=== PATIENT | female | born 1995 | race Caucasian/White ===

== ENCOUNTER 2019-07-02 20:16 | Outpatient (CLI) | payer MEDICAID, SELFPAY ==
[2019-07-02] VITALS (8 sets, daily range): BP systolic 139–140; BP diastolic 69–74; PULSE 96–105; RESP 17–18; TEMP 36.7–36.8; O2SAT 93–95; BMI 56.7
== END 2019-07-02 21:10 | disposition home or self-care (01) ==
LOC: OPOB 20:18 → OBGYN 20:19
PROVIDERS: Family Provider Registered Nurse; PCP Registered Nurse; Visit Provider Obstetrics & Gynecology
DX: O26.899 Other specified pregnancy related conditions, unspecified trimester (principal); Z3A.00 Weeks of gestation of pregnancy not specified; N89.8 Other specified noninflammatory disorders of vagina
CPT/HCPCS: 59025; 99211

== ENCOUNTER 2019-09-14 14:22 | Inpatient (IN) | payer MEDICAID, SELFPAY ==
[2019-09-14] VITALS (76 sets, daily range): BP systolic 0–214; BP diastolic 0–128; PULSE 74–104; RESP 18–32; TEMP 36.4–36.9; O2SAT 85–97; BMI 62.3
[2019-09-14 15:52] LABS: Glucose Point of Care 81 mg/dL (70-110)
[2019-09-14] MEDS: dextrose 5%-lactated ringers 1,000 ML 999 ML IV (15:57)
[2019-09-14] MEDS: labetalol 5 mg/mL SDV 20mL IVP ×2 (15:57→16:30)
[2019-09-14 16:25] LABS: Amphetamines Screen Urine Negative (Negative); Barbiturates Screen Urine Negative (Negative); Benzodiazepines Screen Urine Negative (Negative); Cocaine Screen Urine Negative (Negative); Opiate Screen Urine Negative (Negative); PCP Screen Urine Negative (Negative); THC Screen Urine Negative (Negative)
[2019-09-14 16:34] LABS: Bilirubin Urine Neg (NEGATIVE); Blood Urine Neg (Negative); Glucose Urine UA Norm (Normal); Ketones Urine Negative (Negative); Leukocyte Esterase Urine 2+ (Negative); Nitrate Urine Negative (Negative); Protein Urine 3+ (Negative); Urine Color Yellow (Yellow); Urobilinogen Urine 1 mg/dL (Negative); pH Urine 6 (5-7)
[2019-09-14 16:35] LABS: Add Urine Culture? No; Bacteria Urine 2+; RBC Urine 0-4 /hpf (0-2); Squamous Epithelial Cell Urine 25-40 (0-5)
--- NOTE | 2019-09-14 16:35 | P.HP_ITS ---
Providers/Chief Complaint Admitting Physician: Calvin Bernard MD Primary Care Provider: MYKE Castro History of Present Illness Soraida Dong is a 24 year old at 36.2 weeks gestation by LMP consiste nt with second trimester ultrasound. Her is complicated by prior low- transverse section, history of preeclampsia, morbid obesity, anxiety on Vistaril, chronic hypertension without treatment, now with hypertension with severe features -cannot rule out preeclampsia. The patient has been seen nurse practitioner Lisette Temple at the [facility] since approximately 13 weeks gestation. The patient states that she did not miss appointments. The patient was scheduled to deliver by repeat at [facility] in [place] in early September. The patient was not sure that she could get there because they are having car troubles. The patient has not been monitoring her blood pressure at home. The patient began having nausea, headaches and blurred vision yesterday. The patient noted that she lost half of her vision on the left eye laterally for a period of time as it was very blurry. It has improved, but still is blurry. The patient has also been having some chest pains over the last couple of weeks. She has had some shortness of breath that she feels is secondary to bad lungs since she was a child. She denies any fevers, cough, vomiting, diarrhea, constipation, dysuria, leakage of fluid. She did have some vaginal bleeding with minimal spotting about a month ago that has resolved. Medications/Allergies Home Medications Medication Instructions Recorded Confirmed Last Taken Type 1 tab PO DAILY 07/02/19 07/02/19 07/01/19 History melatonin 1 cap PO BEDTIME 07/02/19 07/02/19 07/01/19 History Allergies Allergy/AdvReac Type Severity Reaction Status Date / Time citalopram Allergy palpitation Verified 04/02/19 13:09 s quetiapine [From Seroquel] Allergy palpitation Verified 04/02/19 13:09 s PFSH Acute PFSH: Surgical History (Updated 09/14/19 @ 16:46 by Calvin Bernard MD) History of section Social History (Updated 04/02/19 @ 13:11 by Mell Darling LPN) Smoking and tobacco status: never smoked Vitals/I&O/Wt Last Vital Signs Pulse 86 09/14/19 16:29 BP 214/112 09/14/19 16:29 Weight last 48 hrs Weight 398 lb Physical Exam Narrative: EXAM NARRATIVE: General: Alert and oriented x3 Eyes: Pupils equal round and reactive to light and accommodation Mouth: Mucous membranes moist, pharynx non-erythematous Cardiac: Tachycardic rate and regular rhythm without murmurs Lungs: Clear to auscultation bilaterally without wheezes, crackles or rhonchi Abdomen: Soft, non-tender, fundus consistent with gestational age Extremities: Trace edema in the bilateral lower extremities A&P Additional A&P Information Soraida Dong is a 24 year old at 36.2 weeks gestation by LMP consistent with second trimester ultrasound. Her is complicated by prior low-transverse section, history of preeclampsia, morbid obesity, anxiety on Vistaril, chronic hypertension without treatment, now with hyper tension with severe features -cannot rule out preeclampsia. The patient is having blood pressures as high as 212 systolic that is concerning for likely chronic hypertension with severe features. The patient is having symptoms of nausea, headache and visual disturbances. These are certainly significant and concerning for his severe disease as well. The patient has received 2 doses of labetalol and her blood pressures are not responding well. I spoke with the patient about the risks of proceeding with and the risk for stroke, organ failure and for herself or her as well as the potential complications of delivery at 36 weeks for the . I recommended that we proceed with a repeat section today because of the above. The patient is in agreement with the plan of care. We are working on getting records from her nurse practitioner. Labs are currently pending for a preeclamptic work-up. At this point I do not feel comfortable waiting for a 12- hour urine protein to confirm preeclampsia. I do not think that it would change anything at this point anyway. We will start the patient on IV magnesium 4 g bolus and 2 g/h now and get her set up for a section. All questions were answered. Proceed with repeat section. Attestations Medical Necessity Statement*: The patient will be here for greater than 2 midnights due to treatment of the above issues. 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
[2019-09-14 16:44] LABS: Basophils % 0.3 %; Eosinophils # 0.1 10^3/uL (0.0-0.8); Hematocrit 35.9 % (37.0-47.0); Hemoglobin 11.3 g/dL (11.5-15.3); Lymphocytes # 1.8 10^3/uL (0.8-4.8); Lymphocytes % 16.7 %; Mean Corpuscular HGB Conc 31.5 g/dL (30.0-36.0); Mean Corpuscular Hemoglobin 27.8 pg (28.0-34.0); Mean Corpuscular Volume 88.4 fL (81-99); Mean Platelet Volume 11.1 fL (7.4-10.4); Monocytes # 0.6 10^3/uL (0.2-0.9); Monocytes % 5.8 %; Neutrophils # 8.29 10^3/uL (1.8-7.7); Neutrophils % 75.7 %; Nucleated Red Blood Cells % 0 %; Platelet Count 183 10^3/cmm (130-400); Red Blood Count 4.06 10^6/uL (4.1-5.3); Red Cell Distribution Width 14.2 % (12.1-15.1); White Blood Count 10.9 10^3/uL (4.0-10.0)
[2019-09-14 16:53] LABS: Alanine Aminotransferase 14 U/L (0-33); Albumin Level 2.9 g/dL (3.5-5.2); Alkaline Phosphatase 109 IU/L (35-105); Anion Gap 12.9 (5-19); Aspartate Amino Transferase 19 U/L (0-32); Blood Urea Nitrogen 5 mg/dL (6-20); Calcium 8.9 mg/dL (8.5-10.5); Carbon Dioxide 28 mmol/L (22-29); Chloride 101 mmol/L (98-107); Globulin 3.6 g/dL (1.3-4.6); Glomerular Filtration Rate 273.3 mL/min (90-130); Glucose 82 mg/dL (65-115); Osmolality Calculated 281 mOsm/kg (285-295); Potassium 3.9 mmol/L (3.5-5.1); Sodium 138 mmol/L (136-145); Total Bilirubin 0.2 mg/dL (0.15-1.2); Total Protein 6.5 g/dL (6.6-8.7)
[2019-09-14] MEDS: magnesium sulfate premix 4 GM/100 ML PREMIX IV (17:04)
[2019-09-14] MEDS: lactated ringers 1,000 ML 999 ML IV (17:04)
[2019-09-14] MEDS: famotidine 20 mg/2 mL INJ IVP (17:06)
[2019-09-14] MEDS: metoclopramide 5 mg/mL SDV 2 mL 10 MG IV (17:07)
[2019-09-14] MEDS: ceFAZolin 1,000 MG in sodium chloride 0.9% (plus) 50 ML 100 MG IV (17:07)
[2019-09-14 17:16] LABS: Urine Creatinine 181 mg/dL (28-217)
[2019-09-14] MEDS: citric acid-sodium citrate 30 mL UDC PO (17:18)
[2019-09-14 17:27] LABS: UPRO/UCREAT Ratio 3.08 mg/mg CR; Urine Protein Random 558 mg/dL
--- NOTE | 2019-09-14 17:36 | ANES.PREANE2 ---
Pre-Anesthetic Assessment Pre-Anesthetic Assessment: Height/Weight: Height 1.7 m Weight 180.53 kg Pulse BP 84 199/106 09/14/19 16:49 09/14/19 16:49 Preop Diagnosis: prev c section Proposed Procedure: c section Was Beta Leoncio taken within 24 hours: N/A Last intake: 1000 09/13 Social: Social History: No alcohol and No tobacco Exam: Pre-Anes Outpt Exam: alert, oriented x 3, clear to auscultation bilaterally and regular rate & rhythm Airway: Submandibular: WNL Cervical ROM: WNL MP: 3 Dentition: Full History/ROS: No significant history except as noted and No significant complaints Pulmonary: Pulmonary: None reported CV/HEM: CV/HEM: HTN (pre-eclampsia) and None reported : : None reported Hepatic: Hepatic: None reported GI: GI: GERD Metabolic: Metabolic: None reported Musc/skel: Musc/skel: None reported Neuropsych: Neuropsych: None reported Anesthetic Plan: ASA status: 3 Anesthesia: General and Regional (specify below) (SAB) Meds/Allergies Current Medications: Current Medications Generic Name Dose Route Start Last Admin Trade Name Freq PRN Reason Stop Dose Admin Dextrose/Lactated Ringer's 1,000 mls @ 125 m ls/hr 09/14/19 15:30 09/14/19 15:57 Dextrose 5%-Lact ated Ringers IV 999 mls/hr .Q8H RACHEL Administration Lactated Ringer's 1,000 mls @ 999 m ls/hr 09/14/19 16:36 09/14/19 17:04 Lactated Ringers IV 999 mls/hr .Q1H1M PRN Administration Per L&D Rescitati on Protocol [facility] Anesthesia PFSH: Surgical History (Updated 09/14/19 @ 16:46 by Calvin Bernard MD) History of section Social History (Updated 04/02/19 @ 13:11 by Mell Darling LPN) Smoking and tobacco status: never smoked Female Reproductive History: : 2 Data Anesthesia CBC & Chem 7: 09/14/19 15:40 09/14/19 14:30 Other Labs: Laboratory Results - last 48 hr 09/14/19 09/14/19 09/14/19 14:30 14:30 14:30 WBC RBC Hgb Hct MCV MCH MCHC RDW Plt Count MPV Neut % (Auto) Lymph % (Auto) [place] % (Auto) Eos % (Auto) Baso % (Auto) Neut # (Auto) Lymph # (Auto) [place] # (Auto) Eos # (Auto) Baso # (Auto) Nucleated RBC % (auto) Nucleated RBCs # Sodium Potassium Chloride Carbon Dioxide Anion Gap BUN Creatinine GFR Calculation Glucose POC Glucose Calculated Osmolality Uric Acid Calcium Total Bilirubin AST ALT Alkaline Phosphatase Total Protein Albumin Globulin Urine Color Yellow Urine Appearance Sl cloudy A Urine pH 6 Ur Specific [place] 1.020 Urine Protein 3+ H Urine Glucose (UA) Norm Urine Ketones Negative Urine Blood Neg Urine Nitrate Negative Urine Bilirubin Neg Urine Urobilinogen 1 H Ur Leukocyte Esterase 2+ H Urine RBC 0-4 H Urine WBC 10-15 H Ur Squamous Epith Cells 25-40 H Urine Bacteria 2+ H U Random Total Protein 558 Urine Creatinine 181 Protein/Creatinin Ratio 3.08 Urine Opiates Screen Negative Ur Barbiturates Screen Negative Ur Phencyclidine Scrn Negative Ur Amphetamines Screen Negative U Benzodiazepines Scrn Negative Urine Cocaine Screen Negative U Marijuana (THC) Screen Negative 09/14/19 09/14/19 09/14/19 14:30 15:40 15:43 WBC 10.9 H RBC 4.06 L Hgb 11.3 L Hct 35.9 L MCV 88.4 MCH 27.8 L MCHC 31.5 RDW 14.2 Plt Count 183 MPV 11.1 H Neut % (Auto) 75.7 Lymph % (Auto) 16.7 [place] % (Auto) 5.8 Eos % (Auto) 1.0 Baso % (Auto) 0.3 Neut # (Auto) 8.29 H Lymph # (Auto) 1.8 [place] # (Auto) 0.6 Eos # (Auto) 0.1 Baso # (Auto) 0.0 Nucleated RBC % (auto) 0 Nucleated RBCs # 0.0 Sodium 138 Potassium 3.9 Chloride 101 Carbon Dioxide 28 Anion Gap 12.9 BUN 5 L Creatinine 0.3 L GFR Calculation 273.3 H Glucose 82 POC Glucose 81 Calculated Osmolality 281 L Uric Acid 5.0 Calcium 8.9 Total Bilirubin 0.2 AST 19 ALT 14 Alkaline Phosphatase 109 H Total Protein 6.5 L Albumin 2.9 L Globulin 3.6 Urine Color Urine Appearance Urine pH Ur Specific [place] Urine Protein Urine Glucose (UA) Urine Ketones Urine Blood Urine Nitrate Urine Bilirubin Urine Urobilinogen Ur Leukocyte Esterase Urine RBC Urine WBC Ur Squamous Epith Cells Urine Bacteria U Random Total Protein Urine Creatinine Protein/Creatinin Ratio Urine Opiates Screen Ur Barbiturates Screen Ur Phencyclidine Scrn Ur Amphetamines Screen U Benzodiazepines Scrn Urine Cocaine Screen U Marijuana (THC) Screen Cardiac Studies: No Data to Display
--- NOTE | 2019-09-14 20:18 | P.OP_ITS ---
Operative Report Date of procedure: September 14, 2019 Pre-op Diagnosis: prev c section Pre-op Diagnosis: 1. Intrauterine at 36.2 weeks gestation 2. Prior low-transverse section 3. Preeclampsia with severe features 4. Morbid obesity 5. Anxiety Post-op Diagnosis: 1. Intrauterine status post repeat low transverse section at 36.2 weeks gestation 2. Prior low-transverse section 3. Preeclampsia with severe features 4. Morbid obesity 5. Anxiety 6. Breech presentation 7. Delivery of healthy infant male weighing 5 pounds 7 ounces Procedure Done: Repeat low transverse section Specimens removed/disposition: Placenta discarded Pathology: none sent Surgeon: Calvin Bernard Anesthesia: Other (Spinal) Estimated blood loss (mL): 600 Urine output (mL): 300 Complications: None Condition: stable Disposition: floor Brief History: Soraida Dong is a 24 year old G2 now P2 status post repeat low transverse section at 36.2 weeks gestation by LMP consistent with second trimester ultrasound. Her was complicated by prior low- transverse section, history of preeclampsia, morbid obesity, anxiety on Vistaril, chronic hypertension without treatment, now with hypertension with severe features -cannot rule out preeclampsia. The patient has been seeing nurse practitioner Lisette Temple at the [facility] since approximately 13 weeks gestation. The patient s tates that she did not miss appointments. The patient was scheduled to deliver by repeat at [facility] in [place] in early September. The patient was not sure that she could get there because they are having car troubles. The patient has not been monitoring her blood pressure at home. Her blood pressures were apparently good in the 120/82 and 128/82 range. Blood pressure at the last appointment was 144/76 approximately 2 weeks ago. The patient began having nausea, headaches and blurred vision yesterday. The patient noted that she lost half of her vision on the left eye laterally for a period of time as it was very blurry. It has improved, but still is blurry. The patient has also been having some chest pains over the last couple of weeks. She has had some shortness of breath that she feels is secondary to bad lungs since she was a child. She denies any fevers, cough, vomiting, diarrhea, constipation, dysuria, leakage of fluid. She did have some vaginal bleeding with minimal spotting about a month ago that has resolved. Upon presentation to labor and delivery triage the patient's blood pressures got up as high as 212 systolic. She continued to be symptomatic and even after 2 doses of IV labetalol her blood pressures were still in the 160s and 170s systolic. Her urine protein creatinine ratio came back at 3.08 consistent with very high protein in the urine and suspicion for significantly elevated 24-hour urine protein. Because of the significant risks to the patient and her infant it was decided best to proceed with delivery. The patient was started on IV magnesium prior to delivery. Procedure: After informed consent was obtained, the patient was taken to the operating room and the patient was prepped and draped in a normal sterile fashion in the dorsal supine position. A spinal epidural was placed and adequate anesthesia was confirmed. At 182 on 09/14/2019, a Pfannenstiel skin incision was made and carried through to the underlying layer of fascia using a scalpel. The fascial incision was then extended laterally using curved Mayos. The fascia was then grasped with Flower clamps and the underlying rectus muscles were dissected off taking care to avoid injury to the underlying tissues. The peritoneum was entered bluntly with one digit. It was then bluntly. An Suyapa device was used for better visualization of the uterus. The bladder blade was placed and the vesicouterine peritoneum was well below the lower uterine segment of the uterus. Only mild scar tissue was appreciated. The uterine incision was made in the lower uterine segment in a transverse fashion with the scalpel at 18:32. The amniotic membrane was entered bluntly and a moderate amount of clear fluid was noted. The was in the breech position. One leg was delivered at a time followed by delivery of the left arm with an inward and downward sweeping of the arm. The right arm was delivered us ing a similar motion. The head delivered without significant difficulty at 183 on 09/14/2019. There was no nuchal cord. The mouth and nose were suctioned. The was crying immediately upon delivery. The cord was clamped and cut and the was handed to the awaiting pediatric nurses and Dr. Casey. The placenta was then manually expressed. The uterus was then exteriorized from the abdomen and a wet lap was used to clear the uterus of clots and debris. The bladder blade was reinserted and the uterine incision was closed using 0 Vicryl in a running locking fashion. A second layer of 0 chromic was used in the same manner. A third layer of 0 chromic was used. Excellent hemostasis was obtained. Next the posterior cul-de-sac was inspected and was cleared of any blood. The uterus was then placed back into the abdomen. The gutters were cleared of any further clots and debris and the uterine incision was again inspected and hemostasis was noted. The subfascial tissue was inspected for hemostasis and the peritoneum was re-approximated using 2-0 plain in a running fashion. Subfascial tissue was again inspected and hemostasis was obtained. The fascia was then reapproximated using 0 Vicryl in a running fashion. Subcutaneous tissue was inspected for hemostasis. Cameron's fascia was then re-approximated using 2-0 plain in a running fashion. A second layer was used to reapproximate the fatty layer. Good hemostasis was noted. The subcutaneous tissue was then reapproximated using a subcuticular stitch. The patient tolerated the procedure well and was recovered in stable condition. Estimated blood loss was 600 mL. Urine in the Henderson catheter was clear. The patient was taken recovery in good condition.
--- NOTE | 2019-09-14 21:21 | XRR_ITS ---
PROCEDURE INFORMATION: Exam: XR Chest, 1 View Exam date and time: 09/14/2019 9:54 PM Age: 24 years old Clinical indication: Dyspnea; Prior surgery; Surgery date: Post-operative (0-2 days); Surgery type: Post c section tomight; Additional info: Low spo2 TECHNIQUE: Imaging protocol: XR of the chest Views: 1 view. COMPARISON: CR Chest 1 [place] [id number] 01/28/2019 3:47 AM FINDINGS: Lungs: Moderate mixed interstitial/alveolar opacities throughout both lungs, increased from prior study. This likely represents pulmonary edema (atypical/viral pneumonia is conceivable). Pleural space: No visible pneumothorax or pleural effusion. Heart/Mediastinum: Mild cardiomegaly, new. Bones/joints: No emergent findings identified. XR/XR chest 1V portable [id number] IMPRESSION: 1. Moderate mixed interstitial/alveolar opacities throughout both lungs, increased from prior study. This likely represents pulmonary edema (atypical/viral pneumonia is conceivable). 2. Mild cardiomegaly, new.
--- NOTE | 2019-09-14 21:24 | ECG_ITS ---
[facility] Test Date: 2019-09-14 Pat Name: Soraida Dong Department: Room: 208 Gender: Female Policy Writer: : 1995 Requested By: Calvin Haider Order Number: [id number] [place] MD: Leila Mccall M.D. Measurements Intervals [place] Rate: 92 P: 71 PA: 143 QRS: 61 QRSD: 92 T: 44 QT: 368 QTc: 456 Interpretive Statements SINUS RHYTHM POSSIBLE LEFT ATRIAL ENLARGEMENT [-0.1mV P WAVE IN V1/V2] Compared to ECG 01/28/2019 09:33:32 Sinus tachycardia no longer present Electronically Signed On 09-15-2019 1:23:25 CDT by Leila Mccall M.D. [email or web address]
[2019-09-14 21:55] LABS: D Dimer 2.43 ug/mIFEU (0-0.59)
[2019-09-14 21:59] LABS: Troponin T (5th) Once 7 ng/L (0-10)
[2019-09-14] MEDS: morphine 4 mg/mL SDV 1 mL IVP (23:10)
[2019-09-14] MEDS: ondansetron 2 mg/ML SDV 2 mL 4 MG IVP (23:22)
[2019-09-15] VITALS (365 sets, daily range): BP systolic 0–168; BP diastolic 0–111; PULSE 66–121; RESP 16–32; TEMP 36.9–37.1; O2SAT 63–99
[2019-09-15 00:13] LABS: Troponin T (5th) Once 8 ng/L (0-10)
[2019-09-15 00:24] LABS: Magnesium Level (OB Only) 3.4 mg/dL (5.0-7.5)
[2019-09-15] MEDS: clindamycin 900 MG/50 ML PREMIX 100 MG IV ×3 (01:05→16:33)
[2019-09-15] MEDS: promethazine 25 mg Tablet PO ×2 (01:05→08:05)
[2019-09-15] MEDS: magnesium sulfate premix 20 GM/500 ML BAG IV ×2 (02:41→14:08)
--- NOTE | 2019-09-15 06:01 | CTR_ITS ---
PROCEDURE INFORMATION: Exam: CT Angiography Chest With Contrast Exam date and time: 09/15/2019 6:16 AM Age: 24 years old Clinical indication: Shortness of breath; Patient HX: Onset of hypoxia. Best exam obtained due to body habitus. Additional info: Low spo2 TECHNIQUE: Imaging protocol: Computed tomographic angiography of the chest with intravenous contrast. 3D rendering: MIP and/or 3D reconstructed images were created by the technologist. Radiation optimization: All CT scans at this facility use at least one of these dose optimization techniques: automated exposure control; mA and/or kV adjustment per patient size (includes targeted exams where dose is matched to clinical indication); or iterative reconstruction. Contrast material: OMNI 350; Contrast volume: 180 ml; Contrast route: INTRAVENOUS (IV); COMPARISON: CTA Chest-Pulmonary Emb [id number] 01/28/2019 4:49 AM RADIATION DOSE METRICS: Total DLP (mGy-cm): 1370.64 FINDINGS: Pulmonary arteries: No pulmonary emboli identified. Aorta: No thoracic aortic aneurysm identified. Lungs: Mild patchy atelectasis scattered throughout both lungs. Pleural space: No pneumothorax or pleural effusion. Heart: Heart size within normal limits. Lymph nodes: Unremarkable. No enlarged lymph nodes. Bones/joints: Visualized bones are unremarkable. Soft tissues: Unremarkable. Other findings: Images of the upper abdomen were reviewed and are unremarkable. CT/CT angio chest PE protcl [id number] IMPRESSION: 1. No pulmonary emboli identified. Radiation Dose CTDIVOL = (mGy): DLP = 1370.64 (mGy-cm)
[2019-09-15] MEDS: iohexol 350 mg/mL 100 mL Btl IV ×2 (06:52→06:54)
[2019-09-15] MEDS: prenatal vitamin Capsule 1 CAP PO (07:59)
[2019-09-15] MEDS: oxyCODONE-APAP 5-325 mg Tablet PO (07:59)
[2019-09-15] MEDS: ferrous sulfate EC 325 mg Tablet PO (07:59)
--- NOTE | 2019-09-15 09:00 | PC.NURSE ---
CPAP Oxygen increased from 2L to 4L for a goal to maintain O2 levels 92% and above
[2019-09-15] MEDS: docusate sodium 100 mg Capsule PO ×2 (09:52→18:19)
[2019-09-15 10:08] LABS: Magnesium Level (OB Only) 3.9 mg/dL (5.0-7.5)
--- NOTE | 2019-09-15 10:41 | ANE.PACU2 ---
Inpatient post-anesthesia follow up: Airway intact: Yes Vital signs: Temperature 98.4 F Pulse Rate 84 Respiratory Rate 17 Blood Pressure 131/66 Pulse Oximetry 96 Oxygen Delivery Me thod Nasal Cannula Oxygen Flow Rate 6 Fraction of Inspir ed Oxygen Hydration adequate: Yes Nausea and vomiting: No Pain level: 3 Mental status: Baseline
--- NOTE | 2019-09-15 13:09 | USCV_ITS ---
Soraida Dong Age: 24 Gender: F : 1995 Exam Date: 09/15/2019 15:10 Ordering Phys: Calvin Bernard MD Technologist: Alejandra Eubanks [place] [facility] [place]: SEVERE PREECAMPSIA BP: / HR: Rhythm: Sinus Technical Quality: TDS MEASUREMENTS (Male / Female) Normal Values 2D ECHO LVOT Diameter 2.0 cm LA Diameter 2.6 cm Aorta at Sinotubular Diameter 2.9 cm FINDINGS Left Ventricle Right Ventricle Right Atrium Left Atrium Mitral Valve Aortic Valve Tricuspid Valve Pulmonic Valve Pericardium Aorta CONCLUSIONS Please note that this is technically difficult and limited echo due to suboptimal image quality 1-Left ventricle and right ventricle cavities are not well visualized probably normal. Probably left ventricle function is normal intermittent 50 to 55% however cannot assess accurately 2-Valvular function cannot be assessed due to insufficient hemodynamic data secondary to suboptimal images 3-Advise repeating echocardiogram with contrast 4-No prior exam to compare. Lauren Perea MD (Electronically Signed) Final Date: 15 September 2019 16:04 S
[2019-09-15] MEDS: HYDROcodone-acetaminophen 5-325 mg Tablet PO ×2 (14:07→18:19)
[2019-09-15] MEDS: FUROsemide 10 mg/mL SDV 10mL 60 MG IVP ×2 (14:07→21:06)
--- NOTE | 2019-09-15 14:21 | PM.PN ---
Subjective Subjective: Interval history: The patient has had multiple episodes overnight with apnea and hypoxia with desaturations to the 60s and 70s while sleeping. The oxygen levels gradually improve into the lower and mid 90s on 2 L of oxygen. The patient states that she has some shortness of breath with some mild chest pains. The patient denies any nausea or vomiting currently. Her pain is well controlled with current medications. Vitals/I&O/Wt Last Vital Signs Temp 98.4 F 09/15/19 09:56 Pulse 83 09/15/19 13:57 Resp 17 09/15/19 07:59 BP 130/98 09/15/19 13:57 Pulse Ox 99 09/15/19 14:16 09/14/19 09/15/19 09/15/19 22:59 06:59 14:59 Intake Total 3001.783 / 3001.783 50 / 3051.783 500.000 / 500.000 Output Total 1325 / 1325 390 / 1715 815 / 815 Balance 1676.783 / 1676.783 -340 / 1336.783 -315.000 / -315.000 Weight last 48 hrs Weight 398 lb Physical Exam Narrative: EXAM NARRATIVE: General: Alert, somnolent Eyes: Pupils equal round and reactive to light and accommodation Mouth: Mucous membranes moist, pharynx non-erythematous Cardiac: Tachycardic rate and regular rhythm without murmurs Lungs: Difficult to hear adequate breath sounds bilaterally secondary to body habitus. Abdomen: Soft, mild tenderness over the lower abdomen at the incision site, fundus is nonpalpable Extremities: +1 pitting edema in the bilateral lower extremities Urinary Catheter Management^: Latex Free: Cath Placed During This Visit: yes Reason for Continuing Indwelling Catheter: Accurate Measurement of Urinary Output in Critically Ill Patients Urinary Catheter Date of Insertion: 09/14/19 Urinary Catheter Time of Insertion: 18:15 Data : 09/14/19 15:40 09/14/19 14:30 A&P Assessment and plan (1) Hypoxia: Status: Acute (2) Fluid overload: Status: Acute (3) Morbid obesity: Status: Acute (4) Hypertension in , preeclampsia, severe: Status: Acute (5) Status post delivery: Status: Acute Additional A&P Information Soraida Dong is a 24 year old G2 now P2 status post repeat low transverse section at 36.2 weeks gestation by LMP consistent with second trimester ultrasound. Her is complicated by prior low-transverse section, history of preeclampsia, morbid obesity, anxiety on Vistaril, chronic hypertension without treatment, now with hypertension with severe features consistent with preeclampsia. The patient is having significant apneic episodes while sleeping and a CPAP was placed, however she is not doing better with this. The patient needs BiPAP while sleeping. The patient is currently on 6 L of oxygen via nasal cannula and she is maintaining her oxygenation in the mid 90s while awake. These do drop into the 60s and 70s when sleeping. The patient is certainly somnolent secondary to IV magnesium. We are keeping these levels in the lower range to try and decrease overall sedation. We are also trying to avoid a significant number of pain medications in order to help with this. The patient does have signs of fluid overload and with her oxygen levels dropping, we will give her a one-time dose of Lasix 60 mg to see if this helps. She is not improving we will need to proceed with transfer to ICU. We attempted earlier this morning, however a bed was not available. The patient has no known exposure to the coronavirus, however this should be tested if she is not showing signs of improvement. We will check some labs to see if they are more consistent with coronavirus or not. We will try to get an echocardiogram done to check for signs of cardiomyopathy secondary to preeclampsia. The patient's troponins are negative at this point. We will proceed with the above care. Overall the patient is in fair condition. I discussed her case with her as well. Attestations Medical Necessity Statement*: The patient continues need inpatient care secondary to the above issues. Should her stay will cross greater than 2 midnights. Critical Care Time: Critical Care Time (min): 45 Coding Level of Care Code Acute Stripper Soft Plastic for Kaelyn Masters Diagnoses Hypoxia R09.02 Fluid overload E87.70 Morbid obesity E66.01 Hypertension in , preeclampsia, severe O14.10 Status post delivery Z98.891
[2019-09-15 15:22] LABS: Basophils % 0.2 %; Eosinophils # 0.1 10^3/uL (0.0-0.8); Eosinophils % 0.8 %; Hematocrit 35.3 % (37.0-47.0); Hemoglobin 10.5 g/dL (11.5-15.3); Lymphocytes # 1.4 10^3/uL (0.8-4.8); Mean Corpuscular HGB Conc 29.7 g/dL (30.0-36.0); Mean Corpuscular Hemoglobin 28.2 pg (28.0-34.0); Mean Corpuscular Volume 94.6 fL (81-99); Mean Platelet Volume 10.3 fL (7.4-10.4); Monocytes # 0.7 10^3/uL (0.2-0.9); Monocytes % 6.5 %; Neutrophils # 8.74 10^3/uL (1.8-7.7); Neutrophils % 79.1 %; Nucleated Red Blood Cells % 0 %; Platelet Count 165 10^3/cmm (130-400); Red Blood Count 3.73 10^6/uL (4.1-5.3); Red Cell Distribution Width 14.8 % (12.1-15.1)
[2019-09-15 15:35] LABS: Alanine Aminotransferase 15 U/L (0-33); Albumin Level 2.6 g/dL (3.5-5.2); Alkaline Phosphatase 105 IU/L (35-105); Anion Gap 13.3 (5-19); Aspartate Amino Transferase 23 U/L (0-32); Blood Urea Nitrogen 5 mg/dL (6-20); Calcium 7.6 mg/dL (8.5-10.5); Carbon Dioxide 30 mmol/L (22-29); Chloride 93 mmol/L (98-107); Ferritin 26 ng/mL (15-150); Globulin 3.8 g/dL (1.3-4.6); Glomerular Filtration Rate 151.6 mL/min (90-130); Glucose 84 mg/dL (65-115); Lactate Dehydrogenase 224 U/L (135-214); Osmolality Calculated 269 mOsm/kg (285-295); Potassium 4.3 mmol/L (3.5-5.1); Sodium 132 mmol/L (136-145); Total Bilirubin 0.3 mg/dL (0.15-1.2); Total Protein 6.4 g/dL (6.6-8.7)
[2019-09-15 15:41] LABS: Magnesium Level (OB Only) 4.1 mg/dL (5.0-7.5)
[2019-09-15] MEDS: dextrose 5%-lactated ringers 1,000 ML 125 ML IV (20:59)
[2019-09-16] VITALS (328 sets, daily range): BP systolic 0–153; BP diastolic 0–101; PULSE 69–163; RESP 16–20; TEMP 36.6–36.9; O2SAT 76–99
[2019-09-16] MEDS: HYDROcodone-acetaminophen 5-325 mg Tablet PO ×4 (03:08→18:09)
[2019-09-16] MEDS: dextrose 5%-lactated ringers 1,000 ML 125 ML IV ×2 (04:49→13:05)
--- NOTE | 2019-09-16 07:33 | PM.PN ---
Subjective Subjective: Interval history: The patient is feeling better today. She is more alert and awake and feels like she is breathing better. The patient has some gas pains and her bleeding has been okay. The patient feels like the pain medications are sufficient, however the pain does breakthrough at times. She has not been able to get up yet and would like to ambulate as a goal today. Vitals/I&O/Wt Last Vital Signs Temp 98.5 F 09/16/19 03:00 Pulse 91 09/16/19 06:57 Resp 17 09/15/19 07:59 BP 152/77 09/16/19 06:57 Pulse Ox 96 09/16/19 07:31 09/15/19 09/16/19 09/16/19 22:59 06:59 14:59 Intake Total 546.550 / 1416.550 979.167 / 2395.717 Output Total 3550 / 4815 2750 / 7565 Balance -3003.450 / -3398.450 -1770.833 / -5169.283 Weight last 48 hrs Weight 398 lb Physical Exam Narrative: EXAM NARRATIVE: General: Alert, oriented x3 Cardiac: Tachycardic rate and regular rhythm without murmurs Lungs: Good air entry in the bilateral lungs without appreciated wheezes, crackles or rhonchi. Difficult to hear adequate breath sounds bilaterally secondary to body habitus. Abdomen: Soft, mild to moderate tenderness over the lower abdomen. Incision site is clean and dry without signs of infection or dehiscence. There is swelling noted in the surrounding area. Fundus is nonpalpable due to body habitus. Extremities: +1 pitting edema in the bilateral lower extremities Urinary Catheter Management^: Latex Free: Cath Placed During This Visit: yes Reason for Continuing Indwelling Catheter: Accurate Measurement of Urinary Output in Critically Ill Patients Urinary Catheter Date of Insertion: 09/14/19 Urinary Catheter Time of Insertion: 18:15 Data : 09/15/19 14:55 09/15/19 14:55 A&P Assessment and plan (1) Hypoxia: Status: Acute (2) Fluid overload: Status: Acute (3) Morbid obesity: Status: Acute (4) Hypertension in , preeclampsia, severe: Status: Acute (5) Status post delivery: Status: Acute Additional A&P Information Soraida Dong is a 24 year old G2 now P2 status post repeat low transverse section at 36.2 weeks gestation by LMP consistent with second trimester ultrasound. Her is complicated by prior low-transverse section, history of preeclampsia, morbid obesity, anxiety on Vistaril, chronic hypertension without treatment, now with hypertension with severe features consistent with preeclampsia. The patient had a on the evening of 09/14/2019. She had significant apneic episodes yesterday with signs of fluid overload. She was given Lasix and her oxygen levels improved well with this. I feel like the underlying cause of her significant hypoxia was secondary to a combination of preeclampsia, fluid overload and IV magnesium use with underlying untreated sleep apnea. Echocardiogram showed an ejection fraction of 50 to 55% which is within normal range. It was a limited study secondary to the patient's body habitus. The patient is now off the IV magnesium and her overall status is significantly improved. Oxygen levels are now in the mid to upper 90s on 5 L via nasal cannula. We will continue to work on weaning this down as able. The patient does have significant sleep apnea and has desaturations while sleeping. These were as low as the 60s to 70s yesterday, however they have improved since Lasix therapy. Overnight with CPAP her oxygen levels dipped below 90 only a couple of times. The patient was given a lengthy talk regarding the need for getting her CPAP and using it. The patient from a standpoint is doing well. I discussed routine care and how to decrease risk for infection. We will work on ambulation which I think will help with passing gas and her abdominal pain associated with it. Overall her bleeding is decreasing well. As long as her oxygen levels stay good, we will likely be able to discontinue the Henderson catheter later today as long as further Lasix is not needed. If she continues to do better my hope would be that she could be discharged home over the next 2 to 3 days. I would like to see her off of oxygen prior to discharge if possible. Continue with care as discussed. Attestations Medical Necessity Statement*: The patient will continue to need inpatient therapy as she recovers after section. Her stay will cross greater than 2 midnights. Coding Level of Care Code Acute Builder Operator for Kaelyn Masters Diagnoses Hypoxia R09.02 Fluid overload E87.70 Morbid obesity E66.01 Hypertension in , preeclampsia, severe O14.10 Status post delivery Z98.891
[2019-09-16] MEDS: prenatal vitamin Capsule 1 CAP PO (08:44)
[2019-09-16] MEDS: ferrous sulfate EC 325 mg Tablet PO (08:44)
[2019-09-16] MEDS: docusate sodium 100 mg Capsule PO ×2 (08:44→18:08)
[2019-09-16] MEDS: simethicone 80 mg Chew PO ×3 (08:51→21:50)
--- NOTE | 2019-09-16 09:05 | PC.NURSE ---
Assisted patient to right tilt at physician's orders.
--- NOTE | 2019-09-16 11:00 | PC.NURSE ---
Patient dangled legs over the side of the bed, denied feeling dizziness weakness or lightheaded. Patient then stood at bedside and tolerated well. Patient was able to then ambulate to chair without difficulties.
--- NOTE | 2019-09-16 14:27 | PC.NURSE ---
Before patient ambulated - this property underwriter assessed patient's oxygen after removing removing nasal cannula. Patient's oxygen saturation before removing nasal cannula was 95-96% with 2L oxygen. After removing the nasal cannula, the patient's oxygen saturation level was between 92-94% on room air. Patient stated she does not usually wear oxygen at home. Oxygen was not worn during ambulation in the hallway. Patient tolerated well, denying any dizziness, weakness or being lightheaded.
--- NOTE | 2019-09-16 17:32 | PC.NURSE ---
Patient got up to the bathroom and her hit the call light for assistance. When this health underwriter entered the room, he stated she had clots when she went pee and wanted them looked at. This nurse then asked the patient if she could feel any thing else coming out and patient denied being able to. Patient stood so the clots could be seen in the hat. 2 large clots mostly filled up the bottom of the hat, but as patient was standing in the bathroom she did not have any further bleeding. Patient then asked if she could take a shower to clean up, and this health underwriter asked her if she was feeling any dizzy or lightheaded. Patient denied any abnormal symptoms, so her IV was taped so she could rinse off in the shower.
[2019-09-16] MEDS: oxyCODONE-APAP 5-325 mg Tablet PO (21:50)
[2019-09-17] VITALS (292 sets, daily range): BP systolic 0–159; BP diastolic 0–81; PULSE 52–211; RESP 15–20; TEMP 36.6–37.1; O2SAT 74–99
[2019-09-17] MEDS: oxyCODONE-APAP 5-325 mg Tablet PO ×3 (03:26→18:41)
[2019-09-17] MEDS: prenatal vitamin Capsule 1 CAP PO (09:06)
[2019-09-17] MEDS: docusate sodium 100 mg Capsule PO ×2 (09:06→17:54)
--- NOTE | 2019-09-17 10:43 | PM.PN ---
Subjective Subjective: Interval history: The patient states that her pain is improving with Percocet. The patient's overall swelling is persistent. The patient feels like her oxygen levels are doing well throughout the day. They do tend to drop at night. She is having hard time getting used to the CPAP. She was told she had sleep apnea in the past and felt that her tonsils were the cause. She would like to have them removed. She did not get a CPAP in the past because her insurance had lapsed. The patient is having some pain in the back at the area of the spinal and it shoots up her spine at times. She has a headache intermittently. Vitals/I&O/Wt Last Vital Signs Temp 98.7 F 09/17/19 04:00 Pulse 93 09/17/19 09:09 Resp 16 09/17/19 03:26 BP 121/73 09/17/19 09:09 Pulse Ox 96 09/17/19 10:40 09/16/19 09/17/19 09/17/19 22:59 06:59 14:59 Intake Total 779.167 / 1779.167 Output Total 700 / 1565 1100 / 1100 Balance 79.167 / 214.167 -1100 / -1100 Physical Exam Narrative: EXAM NARRATIVE: General: Alert, oriented x3 Cardiac: Tachycardic rate and regular rhythm without murmurs Lungs: Good air entry in the bilateral lungs without appreciated wheezes, crackles or rhonchi. Difficult to hear adequate breath sounds bilaterally secondary to body habitus. Abdomen: Soft, mild to moderate tenderness over the lower abdomen. Incision site is clean and dry without signs of dehiscence. There is some swelling noted around the incision area. Fundus is nonpalpable due to body habitus. Extremities: +2 pitting edema in the bilateral lower extremities Urinary Catheter Management^: Latex Free: Cath Placed During This Visit: yes, but has since been removed by the nurse Reason for Continuing Indwelling Catheter: Decision to DC Catheter Urinary Catheter Date of Insertion: 09/14/19 Urinary Catheter Time of Insertion: 18:15 Date Urinary Catheter Removed: 09/16/19 Time Urinary Catheter Discontinued: 15:27 Data : 09/15/19 14:55 09/15/19 14:55 A&P Assessment and plan (1) Hypoxia: Status: Acute (2) Fluid overload: Status: Acute (3) Morbid obesity: Status: Acute (4) Hypertension in , preeclampsia, severe: Status: Acute (5) Status post delivery: Status: Acute Additional A&P Information Soraida Dong is a 24 year old G2 now P2 status post repeat low transverse section at 36.2 weeks gestation by LMP consistent with second trimester ultrasound. Her is complicated by prior low-transverse section, history of preeclampsia, morbid obesity, anxiety on Vistaril, chronic hypertension without treatment, now with hypertension with severe features consistent with preeclampsia. The patient had a on the evening of 09/14/2019. 1. Status post section -from a standpoint, the patient's pain has been controlled well with Percocet. She is still having some random pains associated with the spinal, otherwise is doing well. Her incision is clean and well approximated currently. She is getting more swelling in the dontrell-incisional region and this is concerning to me for increased risk of infection especially with her body habitus. For this reason I will go ahead and start clindamycin by mouth to help decrease risk for infection taking hold. Patient is ambulating, voiding and tolerating food by mouth. She is passing gas. 2. Hypoxia -the patient continues to have some hypoxia with exertion. I will get a repeat chest x-ray to be sure that there is not further complications like pneumonia. I feel that this is still likely secondary to her body habitus and fluid overload. We will give her another dose of Lasix and follow. The patient may need oxygen at home. 3. Edema -the patient has 2+ pitting edema in the bilateral lower extremities. We will give her dose of Lasix today. Recheck labs tomorrow morning. The patient will wear compression socks to help with the swelling. She was advised to decrease her overall liquid intake for right now. 4. Obstructive sleep apnea -the patient has a prior diagnosis of obstructive sleep apnea and was not using a CPAP secondary to a lapse in insurance. The patient does not seem thrilled to use a CPAP machine. She would like to have her tonsils out see if this helps, however upon exam her tonsils are mild to moderately enlarged, however not severely enlarged in my opinion and I do not feel that this would likely treat her underlying problems. The patient is to talk with her nurse practitioner upon discharge about getting another sleep study done if needed or getting a CPAP machine in order to treat this effectively. Attestations Medical Necessity Statement*: The patient continues need inpatient care as she is on oxygen and desaturating easily. We will follow the above issues. My hope is that we will be able to discharge her home tomorrow, however we will have to follow. Coding Level of Care Code Acute Survey Research Analyst for [employer] Diagnoses Hypoxia R09.02 Fluid overload E87.70 Morbid obesity E66.01 Hypertension in , preeclampsia, severe O14.10 Status post delivery Z98.891
--- NOTE | 2019-09-17 10:52 | XRR_ITS ---
PROCEDURE INFORMATION: Exam: XR Chest, 1 View Exam date and time: 09/17/2019 12:27 PM Age: 24 years old Clinical indication: Shortness of breath; Additional info: Hypoxia TECHNIQUE: Imaging protocol: XR of the chest Views: 1 view. COMPARISON: CR XR chest 1V portable [id number] 09/14/2019 9:40 PM FINDINGS: Lungs: Unremarkable. No consolidation. Pleural space: Unremarkable. No pleural effusion. No pneumothorax. Heart/Mediastinum: Unremarkable. No cardiomegaly. Bones/joints: Unremarkable. XR/XR chest 1V portable [id number] IMPRESSION: No acute findings.
[2019-09-17] MEDS: FUROsemide 10 mg/mL SDV 10mL 60 MG IVP (11:15)
--- NOTE | 2019-09-17 12:46 | PC.NURSE ---
Baby Iker brought to the nursery at 1000 to perform circumcision and lab draw. Dr. Casey assessed baby's penis and noted there is a torsion of the penis. Circumcision was not completed due to the torsion. Parents educated by Dr. Casey.
--- NOTE | 2019-09-17 13:51 | PC.NURSE ---
Therese from Respiratory therapy completed home oxygen therapy evaluation. Therese stated patient did not need to be on oxygen while in the hospital or once going home due to being 93% on room air at rest.
[2019-09-17] MEDS: clindamycin 150 mg Capsule 300 MG PO ×2 (15:12→20:32)
--- NOTE | 2019-09-17 15:16 | PC.NURSE ---
Woke patient from a nap. Replaced patient's oxygen saturation monitor and gave patient medications. Patient asked if she had to wear her sleep machine if she was going to take a nap. Nurse explained the patient could refuse to wear it if she would like. Patient stated she is comfortable how she is right now, and doesn't want to wear it.
--- NOTE | 2019-09-17 15:45 | PC.NURSE ---
Therese from respiratory notified of Dr. Ramirez request to evaluate patient due to her oxygen saturation being 89-90% while she is sleeping. Therese said to qualify for oxygen while sleeping, oxygen saturation has to be at 88% or lower. Will continue to monitor patient's oxygen saturation level.
--- NOTE | 2019-09-17 16:46 | PC.NURSE ---
Notified Therese from respiratory of patient's recent oxygen saturation levels. Orders received to put patient on 2L via nasal cannula and to titrate until I reach a sat of 90%.
--- NOTE | 2019-09-17 18:08 | PC.NURSE ---
Therese from respiratory updated on patient's oxygen saturation levels.
[2019-09-17] MEDS: HYDROcodone-acetaminophen 5-325 mg Tablet PO (22:20)
[2019-09-18] VITALS (99 sets, daily range): BP systolic 108–148; BP diastolic 59–86; PULSE 52–213; RESP 16–20; TEMP 36.8–37.1; O2SAT 74–99
--- NOTE | 2019-09-18 01:47 | PC.NURSE ---
DIRECTOR OF ENVIRONMENTAL SERVICES NOTED O2 SATURATION TO BE FLUCTUATING 88-89%. DIRECTOR OF ENVIRONMENTAL SERVICES WENT TO PT'S ROOM TO ENSURE PT WAS WEARING NASAL CANNULA WITH O2 AT 2L; PT WAS IN BED WITH NASAL CANNULA ON. PT STATED SHE HAD SET FLOW TO 0.5L BECAUSE SHE HAD BEEN UNSURE WHAT FLOW RATE SHOULD BE. DIRECTOR OF ENVIRONMENTAL SERVICES ENFORCED EARLIER EDUCATION GIVEN TO PT ON WHAT THE OXYGEN FLOW RATE SHOULD BE, AND THE IMPORTANCE OF KEEPING IT THERE, AND THE IMPORTANCE OF KEEPING CANNULA ON WHILE SLEEPING. PT VERBALIZED UNDERSTANDING. PT'S O2 SAT LEVEL ALMOST IMMEDIATELY RETURNED TO FLUCTUATING BETWEEN 99-100%. PT DENIED ANY FURTHER NEEDS AT THIS TIME. WILL CONTINUE TO MONITOR.
[2019-09-18 03:33] LABS: Basophils % 0.2 %; Eosinophils # 0.3 10^3/uL (0.0-0.8); Eosinophils % 3.1 %; Hematocrit 33.1 % (37.0-47.0); Hemoglobin 10.2 g/dL (11.5-15.3); Lymphocytes # 2.5 10^3/uL (0.8-4.8); Lymphocytes % 24.9 %; Mean Corpuscular HGB Conc 30.8 g/dL (30.0-36.0); Mean Corpuscular Volume 90.9 fL (81-99); Monocytes # 0.6 10^3/uL (0.2-0.9); Monocytes % 6.3 %; Neutrophils % 65.1 %; Nucleated Red Blood Cells % 0 %; Platelet Count 203 10^3/cmm (130-400); Red Blood Count 3.64 10^6/uL (4.1-5.3); Red Cell Distribution Width 14.3 % (12.1-15.1)
[2019-09-18 03:48] LABS: Alanine Aminotransferase 17 U/L (0-33); Albumin Level 2.6 g/dL (3.5-5.2); Alkaline Phosphatase 137 IU/L (35-105); Anion Gap 13.5 (5-19); Aspartate Amino Transferase 34 U/L (0-32); Blood Urea Nitrogen 6 mg/dL (6-20); Calcium 8.4 mg/dL (8.5-10.5); Carbon Dioxide 32 mmol/L (22-29); Chloride 97 mmol/L (98-107); Globulin 4.5 g/dL (1.3-4.6); Glomerular Filtration Rate 196.1 mL/min (90-130); Glucose 80 mg/dL (65-115); Osmolality Calculated 283 mOsm/kg (285-295); Potassium 3.5 mmol/L (3.5-5.1); Sodium 139 mmol/L (136-145); Total Bilirubin 0.3 mg/dL (0.15-1.2); Total Protein 7.1 g/dL (6.6-8.7)
[2019-09-18] MEDS: HYDROcodone-acetaminophen 5-325 mg Tablet PO ×2 (03:59→09:08)
--- NOTE | 2019-09-18 08:26 | P.DS_ITS ---
Discharge Providers Date of Admission: 09/14/19 16:30 Date of Discharge: September 18, 2019 Attending Provider at Admission: Calvin Bernard MD Attending Provider at Discharge: Calvin Bernard MD Primary Care Provider: MYKE Castro Diagnoses at Discharge Discharge Diagnosis (1) Hypoxia: Status: Acute (2) Fluid overload: Status: Resolved (3) Morbid obesity: Status: Acute (4) Hypertension in , preeclampsia, severe: Status: Resolved (5) Status post delivery: Status: Acute Other Information Additional DC diagnoses/information: 1. Intrauterine status post repeat low transverse section at 36.2 weeks gestation 2. Prior low-transverse section 3. Preeclampsia with severe features 4. Morbid obesity 5. Anxiety 6. Breech presentation 7. Delivery of healthy infant male weighing 5 pounds 7 ounces Reason for Visit Reason for Visit: Brief History: Soraida Dong is a 24 year old G2 now P2 status post repeat low transverse section at 36.2 weeks gestation by LMP consistent with second trimester ultrasound. Her was complicated by prior low-transverse section, history of preeclampsia, morbid obesity, anxiety on Vistaril, chronic hypertension without treatment, now with hypertension with severe features -cannot rule out preeclampsia. The patient has been seeing nurse practitioner Lisette Temple at the [facility] since approximately 13 weeks gestation. The patient states that she did not miss appointments. The patient was scheduled to deliver by repeat at [facility] in [place] in early September. The patient was not sure that she could get there because they are having car troubles. The patient has not been monitoring her blood pressure at home. The patient began having nausea, headaches and blurred vision yesterday. The patient noted that she lost half of her vision on the left eye laterally for a period of time as it was very blurry. It has improved, but still is blurry. The patient has also been having some chest pains over the last couple of weeks. She has had some shortness of breath that she feels is secondary to bad lungs since she was a child In OB triage the patient was found to have significantly elevated blood pressures that were initially in the 170/100 range and they continued to climb as high as 212/120. The patient has headaches, nausea and blurred vision associated with this. The patient was given IV labetalol x2 and her pressures continued to be in the severe range. Her urine protein creatinine ratio was 3.08 consistent with a significantly elevated urine protein level. For these reasons it was concerning that the patient had preeclampsia with severe features and that delivery was necessary to treat this since she was past 34 weeks. Hospital Course Hospital Course: The patient was placed on IV magnesium and given IV antibiotics and the patient had a repeat low-transverse section that was difficult but uncomplicated. The patient delivered a healthy male weighing 5 pounds 7 ounces. the patient was placed on IV magnesium for 24 hours. Her overall magnesium levels were in the lower range between 3 and 4, however we could not turn the levels up as the patient was showing signs of hypoxia and fluid overload. Initially we planned to move the patient to the ICU, however no bed was available. The patient had oxygen levels that would drop into the 60s and 70s while sleeping. She was given multiple doses of Lasix and started on oxygen via nasal cannula while awake and CPAP while sleeping. The patient initially required 6 L of oxygen via nasal cannula. Gradually her needs during the day improved and she continued to have desaturations at night. Eventually her desaturations at night improved as long as she wore the CPAP. Without CPAP she continued to have desaturations into the mid 80s. I had a lengthy discussion with the patient regarding her obstructive sleep apnea and that it was very important to get this treated as she was showing signs of significant problems associated with it. The patient feels that the underlying causes her tonsils and not her weight, however I reassured her that having her tonsils removed would unlikely fix the problem. I highly encouraged her to get a sleep study done as soon as possible and to get the CPAP machine as soon as possible as well and use it. The patient was not compliant with using the CPAP consistently in the hospital unfortunately. I have significant concern that the patient will not be compliant as an outpatient. She will have to follow-up with her primary care provider for this. The patient was tested for needs for oxygen during the day and she did not qualify. I would recommend that the patient have a nocturnal oximetry study done to see if she needs oxygen at nighttime especially until she gets her CPAP which would hopefully help with this as well. The patient's incision had no signs of dehiscence while she was here. There were concerns that there was lots of swelling in the dontrell-incisional region which will significantly increase her risk for infection. Due to her increased risk for infection secondary to morbid obesity, she was placed on clindamycin by mouth IV for 24 hours followed by mouth for another week. The patient is to follow-up with me in clinic this week to follow the incision and the following week as well. A lengthy discussion was had with the patient regarding the ways to decrease risk for infection and the need to present immediately if there are concerns for infection as well. Routine post care instructions were also given regarding precautions for lifting, driving, etc. all questions were answered. The patient is in agree ment with discharge home at this time. She is to use Motrin for pain control and Percocet only as needed. She was advised to work on weaning the Percocet. The patient is to follow-up with at 6 weeks with her nurse practitioner providing care. Physical Exam Narrative: EXAM NARRATIVE: General: Alert, oriented x3 Cardiac: Tachycardic rate and regular rhythm without murmurs Lungs: Good air entry in the bilateral lungs without appreciated wheezes, crackles or rhonchi. Difficult to hear adequate breath sounds bilaterally secondary to body habitus. Abdomen: Soft, mild to moderate tenderness over the lower abdomen. Incision site is clean and dry without signs of dehiscence. There is some swelling noted around the incision area. Fundus is nonpalpable due to body habitus. Extremities: +2 pitting edema in the bilateral lower extremities Urinary Catheter Management^: Latex Free: Cath Placed During This Visit: yes, but has since been removed by the nurse Reason for Continuing Indwelling Catheter: Decision to DC Catheter Urinary Catheter Date of Insertion: 09/14/19 Urinary Catheter Time of Insertion: 18:15 Date Urinary Catheter Removed: 09/16/19 Time Urinary Catheter Discontinued: 15:27 Discharge Data Data Completed and Pending: Completed Studies During Hospitalization Category Date Time Status CT angio chest PE protcl [id number] Stat Cat Scan 09/15/19 06:01 Completed XR chest 1V tory ble [id number] Routine Exams 09/17/19 10:52 Completed XR chest 1V tory ble [id number] Stat Exams 09/14/19 21:21 Completed CV echo limited 9 [id number] Routine Ultrasound 09/15/19 13:09 Completed Labs from last 24 hours 09/18/19 09/18/19 03:27 03:27 WBC 10.0 RBC 3.64 L Hgb 10.2 L Hct 33.1 L MCV 90.9 MCH 28.0 MCHC 30.8 RDW 14.3 Plt Count 203 MPV 10.0 Neut % (Auto) 65.1 Lymph % (Auto) 24.9 [place] % (Auto) 6.3 Eos % (Auto) 3.1 Baso % (Auto) 0.2 Neut # (Auto) 6.50 Lymph # (Auto) 2.5 [place] # (Auto) 0.6 Eos # (Auto) 0.3 Baso # (Auto) 0.0 Nucleated RBC % (a uto) 0 Nucleated RBCs # 0.0 Sodium 139 Potassium 3.5 Chloride 97 L Carbon Dioxide 32 H Anion Gap 13.5 BUN 6 Creatinine 0.4 L GFR Calculation 196.1 H Glucose 80 Calculated Osmolal ity 283 L Calcium 8.4 L Total Bilirubin 0.3 AST 34 H ALT 17 Alkaline Phosphata se 137 H C-React Prot High Sens 19.990 H Total Protein 7.1 Albumin 2.6 L Globulin 4.5 Vitals: Last Vital Signs Temp 98.3 F 09/18/19 04:00 Pulse 86 09/18/19 04:06 Resp 16 09/18/19 04:00 BP 146/86 09/18/19 04:06 Pulse Ox 93 09/18/19 07:41 Discharge Plan Discharge Patient Disposition: Home, Self-Care Condition: Stable Prescriptions: New ibuprofen 800 mg Tablet 800 mg PO TID Qty: 60 RF: 0 clindamycin HCl 150 mg Capsule 300 mg PO TID 10 Days Qty: 30 RF: 0 oxycodone-acetaminophen 5-325 mg Tablet 1 tab PO Q6H PRN (Reason: Moderate To Severe Pain) Qty: 30 RF: 0 ferrous sulfate 325 mg (65 mg iron) Tablet,Delayed Release (Dr/Ec) 325 mg PO BIDWM 15 Days Qty: 30 RF: 0 Continued 1 tab PO DAILY RF: 0 melatonin 1 cap PO BEDTIME RF: 0 Discharge Orders: Discharge Order (Routine); Ordered 09/18/19 Ordered By: Calvin Bernard Other Ambulatory Orders: Sleep Oximetry Study (Routine) Timeframe: 1 Day Location: None Selected Ordered By: Calvin Bernard Referrals: Katie Rojas FNP [Primary Care Provider] - 1 week (Patient is to follow-up with her PCP for evaluation for CPAP.) Calvin Bernard MD [Physician] - 09/22/19 Discharge Diet: Regular Discharge Activity: Limit activity as instructed Patient Instructions: Section (DC), Bottle Feeding Your Baby (GEN), Breast Care for the Non-breast Feeding Woman (DC), OB Discharge Report, OB Food/Drug Interaction Guide Activity Restrictions/Additional Instructions: If there is any concern for infection in your incision site, please seek immediate medical attention. It is very important that you get a CPAP machine and use it regularly. Please talk with your primary care provider for getting a prescription for a CPAP or further testing if needed. Please get night oxygen study done to see if oxygen is needed at nighttime. Nothing per vagina for 6 weeks. This includes no tampons. No bathing or swimming for 6 weeks. Okay to shower. No driving for 2 weeks. Do not lift anything heavier than your infant in the car seat for the first 3 weeks, then gradually increase. 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
[2019-09-18] MEDS: ferrous sulfate EC 325 mg Tablet PO (09:07)
[2019-09-18] MEDS: prenatal vitamin Capsule 1 CAP PO (09:07)
[2019-09-18] MEDS: docusate sodium 100 mg Capsule PO (09:28)
[2019-09-18] MEDS: clindamycin 150 mg Capsule 300 MG PO (09:31)
== END 2019-09-18 12:53 | disposition home or self-care (01) | DRG 788 ==
PROVIDERS: Family Medicine; Admitting Provider Family Medicine; Family Provider Registered Nurse; PCP Registered Nurse; Visit Provider Family Medicine
PROC: 10D00Z1 Extraction of Products of Conception, Low, Open Approach (ICD-10-PCS; CPT 59514; principal; 2019-09-14 17:45)
DX: O14.14 Severe pre-eclampsia complicating childbirth (principal); Z3A.36 36 weeks gestation of pregnancy; Z37.0 Single live birth; O99.214 Obesity complicating childbirth; O32.1XX0 Maternal care for breech presentation, not applicable or unspecified; O99.344 Other mental disorders complicating childbirth; F41.9 Anxiety disorder, unspecified; O65.5 Obstructed labor due to abnormality of maternal pelvic organs; O34.211 Maternal care for low transverse scar from previous cesarean delivery; N85.8 Other specified noninflammatory disorders of uterus; O60.14X0 Preterm labor third trimester with preterm delivery third trimester, not applicable or unspecified
CPT/HCPCS: 12345; 36415; 36416; 51702; 59025; 59409; 71045; 71275; 80053; 80306; 81001; 82570; 82728; 82962; 83615; 83735; 84156; 84484; 84550; 85025; 85378; 86141; 93005; 93308; 94660; 94664; 96375; 99211; G0378; G0379; J0690; J1940; J2250; J2270; J2274; J2405; J2765; J3010; J3475; J3490; J7030; Q0169; Q9967

== ENCOUNTER 2021-01-29 14:44 | Emergency (ER) | payer MEDICAID, SELFPAY ==
[2021-01-29 15:38] VITALS: BP 157/88; PULSE 87; RESP 18; TEMP 36.7; O2SAT 93; BMI 61.0
--- NOTE | 2021-01-29 16:03 | PC.NURSE ---
Provider at bedside
--- NOTE | 2021-01-29 16:11 | ED_ITS ---
HPI - Extremity Problem General: Chief complaint: Extremity Problem,Nontraumatic Stated complaint: H/A, TINGLY UP L SIDE OF NECK, LIGHT HEADED Time Seen by Provider: 01/29/21 15:48 History of Present Illness: HPI Narrative: Patient complains about left-sided arm neck hip leg pain times couple weeks. States also she has x-rays from her provider for her low back and her right hip and knee because of pain. Says her provider thinks she might have a herniated or bulging disc. Patient states that her next been bothering her last few days and during the night hours when she was playing at her baby she moved her neck suddenly and felt dizzy and nauseated. Said now she has neck pain and a headache also. He is having also a stress going on life. MD Complaint: extremity pain Onset (ago): week(s) Pain Consistency: intermittent Location: left, upper extremity and lower extremity Severity scale (1-10): 3 Quality: aching Radiation: distal Relieving factors: immobilization Exacerbating factors: range of motion and weight bearing Associated symptoms: Reports other (Nauseated); Deny chest pain, fever(s) or rash Review of Systems Const: Denies: fever(s), chills or body aches Eyes: Denies: change in vision or blurry vision ENMT: Denies: throat pain or nasal congestion Card: Denies: chest pain or dyspnea on exertion Resp: Denies: dyspnea, productive cough or non-productive cough GI: Reports: nausea; Denies: abdominal pain or vomiting Musc: Reports: neck pain, back pain and extremity pain Skin/Breast: Denies: rash Neuro: Reports: headache(s) and dizziness Psych: Denies: anxiety or depression [place]/Lymph: Denies: easy bruising PFS ED PFSH: Surgical History (Updated 10/05/19 @ 00:00 by ) History of section Social History (Updated 04/02/19 @ 13:11 by Mell Darling RN) Smoking and tobacco status: never smoked Physical Exam Const: COMMON NORMALS: no acute distress, average body habitus and patient oriented x3 HENMT: COMMON NORMALS: normocephalic and TM's normal bilaterally HEAD & SCALP: normal to inspection and normocephalic FACE & SINUS: normal facial exam TYMPANIC MEMBRANE: TM's normal bilaterally MOUTH: Normal oral and palatal mucosa present Eye: COMMON NORMALS: conjunctivae normal GENERAL EYE: appearance normal, both eyes and all related structures CONJUNCTIVA: Yes conjunctivae normal Neck/C-Spine: COMMON NORMALS: full ROM and no JVD CERVICAL SPINE: Yes cervical ROM normal and Yes Paracervical muscle tenderness Chest: COMMONS NORMALS: normal inspection of the chest Resp: COMMON NORMALS: normal respiratory effort and clear to auscultation bilaterally AUSCULTATION: clear to auscultation bilaterally Cardio: COMMON NORMALS: no JVD, regular rate and regular rhythm RATE: regular rate RHYTHM: regular rhythm GI: COMMON NORMALS: Normal to inspection, nondistended, normoactive bowel sounds present Extremity: COMMON NORMALS: normal to inspection and full ROM NARRATIVE EXTREMITY EXAM: Ambulates without difficulty OTHER: Patient is moving her arms and shoulders neck without difficulty talking with her hands arms and moving them without any flexion of pain noticed. Neuro: COMMON NORMALS: patient oriented x3 and CN's II-XII intact bilaterally Psych: ATTITUDE: Yes Other attitude/behavior findings present (Psych) (Stressed) Skin: OTHER: Patient has marked psoriatic patches on the elbows and ears scalp Course Vital Signs: Vital signs: Vital Signs Temperature 98.1 F 01/29/21 15:38 Pulse Rate 87 01/29/21 15:38 Respiratory Rate 18 01/29/21 15:38 Blood Pressure 157/88 01/29/21 15:38 Pulse Oximetry 93 01/29/21 15:38 MDM - Extremity (Nontraumatic) MDM Narrative: Medical decision making narrative: Patient is a variety of what appear to be unrelated complaints going on. Labs seems related to the stress on her life. She does have classic tension headache symptoms possibly may be some spinal stenosis also also she has hip and back pain that she has had work-up by her primary care provider and may be some seem related but think over writing presenting factors are stress going on her life and her size and her lack of medication treatment Discharge Plan Discharge Patient Disposition: Home Clinical Impression: Morbid obesity, Acute neck pain, Psoriasis Acute tension-type headache Qualifiers: Intractability: intractable Qualified Code(s): G44.201 - Tension-type headache, unspecified, intractable Back pain Qualifiers: Back pain location: low back pain Chronicity: chronic Back pain laterality: bilateral Sciatica presence: without sciatica Qualified Code(s): M54.50 - Low back pain, unspecified Chronic hip pain Qualifiers: Laterality: right Qualified Code(s): M25.551 - Pain in right hip Condition: Stable Prescriptions: New Fioricet 50-300-40 mg capsule 1 cap PO Q6H PRN (Reason: pain) Qty: 14 RF: 0 Celebrex 100 mg capsule 100 mg PO BID Qty: 20 RF: 0 No Action 1 tab PO DAILY RF: 0 melatonin 1 cap PO BEDTIME RF: 0 ibuprofen 800 mg Tablet 800 mg PO TID Qty: 60 RF: 0 oxycodone-acetaminophen 5-325 mg Tablet 1 tab PO Q6H PRN (Reason: Moderate To Severe Pain) Qty: 30 RF: 0 Discharge Orders: Discharge ED (Routine); Ordered 01/29/21 Ordered By: Ankit Soria Referrals: Olga Martini DO [Primary Care Provider] - Discharge Diet: Usual diet Discharge Activity: Increase activity as tolerated Patient Instructions: Tension Headache (ED), Obesity (ED), Back Pain (ED), Hip Pain (ED), Acute Neck Pain (ED) Coding Level of Care Code ED 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
== END 2021-01-29 16:53 | disposition home or self-care (01) ==
PROVIDERS: Emergency Provider Nurse Practitioner Family; PCP Family Medicine
DX: G89.29 Other chronic pain (principal); M25.551 Pain in right hip; M54.50 Low back pain, unspecified; G44.201 Tension-type headache, unspecified, intractable; M54.2 Cervicalgia; L40.9 Psoriasis, unspecified; E66.01 Morbid (severe) obesity due to excess calories
CPT/HCPCS: 99282

== ENCOUNTER 2021-03-30 23:28 | Emergency (ER) | payer MEDICAID, SELFPAY ==
[2021-03-30 23:37] VITALS: BP 167/110; PULSE 88; RESP 24; TEMP 36.9; O2SAT 94; BMI 63.6
--- NOTE | 2021-03-30 23:48 | ECG_ITS ---
[facility] Test Date: 2021-03-30 Pat Name: Soraida Dong Department: Room: Gender: Female Scientific Artist: : 1995 Requested By: Jamee Cortez Order Number: [id number] Reading MD: VARINDER CABEZAS Measurements Intervals [place] Rate: 93 P: 68 AL: 173 QRS: 80 QRSD: 94 T: 69 QT: 343 QTc: 428 Interpretive Statements SINUS RHYTHM Compared to ECG 09/14/2019 22:12:35 No significant changes Electronically Signed On 03-31-2021 19:51:19 RADIOGRAPHER MAMMOGRAPHER by VARINDER CABEZAS [email or web address]
--- NOTE | 2021-03-30 23:48 | XR_ITS ---
WS: [id number] XR chest 1V portable [id number] REASON FOR EXAM: sob FINDINGS: The chest is relatively unchanged compared to 09/17/2019. The heart and mediastinum are within normal limits. No active pulmonary parenchymal pleural disease. Bony thorax intact. XR/XR chest 1V portable [id number] IMPRESSION: No acute chest abnormality identified.
--- NOTE | 2021-03-31 00:50 | CTR_ITS ---
PROCEDURE INFORMATION: Exam: CT Head Without Contrast Exam date and time: 03/31/2021 12:50 AM Age: 26 years old Clinical indication: Pain; Headache; Additional info: QUINT[place]ILLA TECHNIQUE: Imaging protocol: Computed tomography of the head without contrast. Radiation optimization: All CT scans at this facility use at least one of these dose optimization techniques: automated exposure control; mA and/or kV adjustment per patient size (includes targeted exams where dose is matched to clinical indication); or iterative reconstruction. COMPARISON: CT head wo con* [id number] 09/10/2017 10:28 PM RADIATION DOSE METRICS: Total DLP (mGy-cm): 969.01 FINDINGS: Brain: Normal. No hemorrhage. Unremarkable white matter. No mass effect. Cerebral ventricles: No ventriculomegaly. Paranasal sinuses: Visualized sinuses are unremarkable. No fluid levels. Mastoid air cells: Visualized mastoid air cells are well aerated. Bones/joints: Unremarkable. No acute fracture. Soft tissues: Unremarkable. CT/CT head wo con* [id number] IMPRESSION: No acute intracranial abnormality.
[2021-03-31 00:51] VITALS: BP 185/100; PULSE 85; PULSE 93; RESP 19; O2SAT 92
--- NOTE | 2021-03-31 00:51 | W.ED.CHESTPA ---
HPI - Chest Pain General: Chief Complaint: Chest Pain Stated Complaint: sob, cp Time Seen by Provider: 03/30/21 23:49 Source: patient Mode of arrival: ambulatory Limitations: no limitations History of Present Illness: 26-year-old female who states that she has been having neck pain with pain going down her left arm over the last week to 2 weeks. She states that she is also been having some palpitations and chest pains and feeling anxious. States pains been sharp in nature also has had some intermittent headaches with some blurry vision she had no weakness no vomiting denies any worsening improving factors states pain currently is a 4 out of 10. Associated symptoms: Reports dyspnea and palpitations; Deny abdominal pain, fever(s), nausea or vomiting Review of Systems Const: Denies: fever(s), chills, body aches or change in appetite Eyes: Reports: change in vision ENMT: Denies: throat pain or dental pain Card: Reports: chest pain and palpitations Resp: Reports: dyspnea GI: Denies: abdominal pain, nausea, vomiting or diarrhea : Denies: dysuria Musc: Reports: neck pain Skin/Breast: Denies: rash Neuro: Denies: headache(s) Psych: Denies: depression [place]/Lymph: Denies: easy bruising All/Imm: Denies: urticaria PFSH ED PFSH: Surgical History (Updated 10/05/19 @ 00:00 by ) History of section Social History (Updated 04/02/19 @ 13:11 by Mell Darling RN) Smoking and tobacco status: never smoked Female Reproductive History: Date of last menstrual period: 03/23/21 Physical Exam Const: COMMON NORMALS: no acute distress, patient oriented x3 and healthy appearing GENERAL APPEARANCE: anxious NUTRITIONAL APPEARANCE: obese HENMT: COMMON NORMALS: normocephalic and atraumatic HEAD & SCALP: normocephalic and atraumatic Eye: COMMON NORMALS: Equal, round and reactive pupils present and EOMs intact bilaterally PUPIL: Yes Equal, round and reactive pupils present Neck/C-Spine: COMMON NORMALS: full ROM and supple Chest: COMMONS NORMALS: normal inspection of the chest and normal palpation of entire chest wall Resp: COMMON NORMALS: normal respiratory effort, No retractions, No use of accessory muscles and clear to auscultation bilaterally AUSCULTATION: clear to auscultation bilaterally Cardio: COMMON NORMALS: regular rate, regular rhythm and No murmurs present (Cardio) RATE: regular rate RHYTHM: regular rhythm GI: COMMON NORMALS: Normal to inspection, nondistended, normoactive bowel sounds present, Soft to palpation, non-tender and no masses PALPATION: Yes Soft to palpation Extremity: COMMON NORMALS: normal to inspection and full ROM Neuro: COMMON NORMALS: patient oriented x3, moves all extremities and no focal motor deficits SPEECH: speech normal GAIT: Yes Normal gait present MOTOR EXAM: 5/5 motor strength present throughout Psych: COMMON NORMALS: mental status grossly normal, Normal thought process present and cooperative THOUGHT PROCESS: Normal thought process present Skin: COMMON NORMALS: no rashes or lesions noted and no wounds GENERAL SKIN EXAM: no rashes or lesions noted Course Vital Signs: Vital signs: Vital Signs Temperature 98.4 F 03/30/21 23:37 Pulse Rate 92 03/31/21 01:06 Respiratory Rate 18 03/31/21 01:06 Blood Pressure 154/123 03/31/21 01:06 Pulse Oximetry 92 03/31/21 01:06 MDM - Chest Pain Medical Decision Making Patient presents here with chest pain along with neck pain. Neck pain has been chronic nature she has no signs of a stroke her head CT here is normal CT shows no signs of PE blood work is all normal as well she is stable for discharge is to follow-up with PCP return if worsening she understands agrees to plan. Lab Data : 03/31/21 00:50 03/31/21 00:[address] 03/31/21 00:50 IMPRESSION: No acute intracranial abnormality. Chest CTA 03/31/21 01:22 IMPRESSION: No acute findings. Laboratory Results WBC 8.8 10^3/uL (4.0-10.0) 03/31/21 00:50 RBC 5.22 10^6/uL (4.1-5.3) 03/31/21 00:50 Hgb 12.8 g/dL (11.5-15.3) 03/31/21 00:50 Hct 42.9 % (37.0-47.0) 03/31/21 00:50 MCV 82.2 fl (81-99) 03/31/21 00:50 MCH 24.5 pg (28.0-34.0) L 03/31/21 00:50 MCHC 29.8 g/dL (30.0-36.0) L 03/31/21 00:50 RDW 14.9 % (12.1-15.1) 03/31/21 00:50 Plt Count 243 10^3/cmm (130-400) 03/31/21 00:50 MPV 9.8 fL (7.4-10.4) 03/31/21 00:50 Neut % (Auto) 76.0 % 03/31/21 00:50 Lymph % (Auto) 16.2 % 03/31/21 00:50 [place] % (Auto) 5.1 % 03/31/21 00:50 Eos % (Auto) 1.7 % 03/31/21 00:50 Baso % (Auto) 0.5 % 03/31/21 00:50 Neut # (Auto) 6.73 10^3/uL (1.8-7.7) 03/31/21 00:50 Lymph # (Auto) 1.4 10^3/uL (0.8-4.8) 03/31/21 00:50 [place] # (Auto) 0.5 10^3/uL (0.2-0.9) 03/31/21 00:50 Eos # (Auto) 0.2 10^3/uL (0.0-0.8) 03/31/21 00:50 Baso # (Auto) 0.0 10^3/uL (0.0-0.1) 03/31/21 00:50 Nucleated RBC % (auto) 0 % 03/31/21 00:50 Nucleated RBCs # 0.0 /100WBC 03/31/21 00:50 D-Dimer 0.93 ug/mIFEU (0-0.59) H 03/31/21 00:50 Sodium 140 mmol/L (136-145) 03/31/21 00:50 Potassium 4.1 mmol/L (3.5-5.1) 03/31/21 00:50 Chloride 101 mmol/L (98-107) 03/31/21 00:50 Carbon Dioxide 27 mmol/L (22-29) 03/31/21 00:50 Anion Gap 16.1 (5-19) 03/31/21 00:50 BUN 8 mg/dL (6-20) 03/31/21 00:50 Creatinine 0.5 mg/dL (0.5-0.9) 03/31/21 00:50 GFR Calculation 149.1 mL/min (90-130) H 03/31/21 00:50 Glucose 89 mg/dL (65-115) 03/31/21 00:50 Calculated Osmolality 288 mOsm/kg (285-295) 03/31/21 00:50 Calcium 9.6 mg/dL (8.5-10.5) 03/31/21 00:50 Total Bilirubin 0.3 mg/dL (0.15-1.2) 03/31/21 00:50 AST 16 U/L (0-32) 03/31/21 00:50 ALT 15 U/L (0-33) 03/31/21 00:50 Alkaline Phosphatase 129 IU/L (35-105) H 03/31/21 00:50 Troponin T Baseline 6 ng/L (0-10) 03/31/21 00:50 Total Protein 7.9 g/dL (6.6-8.7) 03/31/21 00:50 Albumin 3.5 g/dL (3.5-5.2) 03/31/21 00:50 Globulin 4.4 g/dL (1.3-4.6) 03/31/21 00:50 Imaging Data CXR: I personally reviewed and interpreted this imaging study as follows: My impression: no acute abnormality CT Head: Radiologist's impression: No acute intracranial abnormality. CT Chest: Radiologist's impression: IMPRESSION: No acute findings. EKG Data EKG 1: I personally reviewed and interpreted this EKG as follows: EKG interpretation date: 03/30/21 EKG interpretation time: 23:35 Interpretation: nsr hr [address] or t wave abnormalities qrs 94 qtc 394 EKG 2: I personally reviewed and interpreted this EKG as follows: EKG interpretation date: 03/31/21 EKG interpretation time: 01:53 Interpretation: nsr hr [address] or t wave abnormalities qrs 94 qtc 408 Discharge Plan Discharge Patient Disposition: Home Clinical Impression: Chest pain, Neck pain Condition: Stable Prescriptions: No Action 1 tab PO DAILY 0RF melatonin 1 cap PO BEDTIME 0RF ibuprofen 800 mg Tablet 800 mg PO TID Qty: 60 0RF oxycodone-acetaminophen 5-325 mg Tablet 1 tab PO Q6H PRN (Reason: Moderate To Severe Pain) Qty: 30 0RF Fioricet 50-300-40 mg capsule 1 cap PO Q6H PRN (Reason: pain) Qty: 14 0RF Celebrex 100 mg capsule 100 mg PO BID Qty: 20 0RF Discharge Orders: Discharge ED (Routine); Ordered 03/31/21 Ordered By: Jamee Cortez Referrals: Olga Martini DO [Primary Care Provider] - 1-3 days Discharge Diet: Advance as tolerated Discharge Activity: Resume usual activity Patient Instructions: Chest Pain (ED) Coding Level of Care Code ED Cigar Packer And Picker for Chg Fwd Exam Comprehensive
[2021-03-31] MEDS: ketorolac 30 mg/mL INJ IVP (01:04)
[2021-03-31] MEDS: LORazepam 2 mg/mL INJ 1 mL 1 MG IVP (01:05)
[2021-03-31 01:06] VITALS: BP 154/123; PULSE 92; RESP 18; O2SAT 92
[2021-03-31 01:09] LABS: Basophils % 0.5 %; Eosinophils # 0.2 10^3/uL (0.0-0.8); Eosinophils % 1.7 %; Hematocrit 42.9 % (37.0-47.0); Hemoglobin 12.8 g/dL (11.5-15.3); Lymphocytes # 1.4 10^3/uL (0.8-4.8); Lymphocytes % 16.2 %; Mean Corpuscular HGB Conc 29.8 g/dL (30.0-36.0); Mean Corpuscular Hemoglobin 24.5 pg (28.0-34.0); Mean Corpuscular Volume 82.2 fl (81-99); Mean Platelet Volume 9.8 fL (7.4-10.4); Monocytes # 0.5 10^3/uL (0.2-0.9); Monocytes % 5.1 %; Neutrophils # 6.73 10^3/uL (1.8-7.7); Nucleated Red Blood Cells % 0 %; Platelet Count 243 10^3/cmm (130-400); Red Blood Count 5.22 10^6/uL (4.1-5.3); Red Cell Distribution Width 14.9 % (12.1-15.1); White Blood Count 8.8 10^3/uL (4.0-10.0)
[2021-03-31 01:21] LABS: D Dimer 0.93 ug/mIFEU (0-0.59)
--- NOTE | 2021-03-31 01:22 | CTR_ITS ---
PROCEDURE INFORMATION: Exam: CTA Chest With Contrast Exam date and time: 03/31/2021 1:22 AM Age: 26 years old Clinical indication: Abnormal findings; Abnormal diagnostic tests; Elevated d-dimer; Additional info: SOB TECHNIQUE: Imaging protocol: Computed tomographic angiography of the chest with contrast. 3D rendering (Not supervised by radiologist): MIP and/or 3D reconstructed images were created by the technologist. Radiation optimization: All CT scans at this facility use at least one of these dose optimization techniques: automated exposure control; mA and/or kV adjustment per patient size (includes targeted exams where dose is matched to clinical indication); or iterative reconstruction. Contrast material: OMNI 350; Contrast volume: 95 ml; Contrast route: INTRAVENOUS (IV); COMPARISON: CT angio chest PE protcl [id number] 09/15/2019 6:32 AM RADIATION DOSE METRICS: Total DLP (mGy-cm): 623.54 FINDINGS: Pulmonary arteries: Normal. No pulmonary emboli. Aorta: Unremarkable. No aortic aneurysm. No aortic dissection. Lungs: Unremarkable. No consolidation. No masses. Pleural spaces: Unremarkable. No pneumothorax. No pleural effusion. Heart: Unremarkable. No cardiomegaly. No pericardial effusion. Lymph nodes: Unremarkable. No enlarged lymph nodes. Bones/joints: Unremarkable. No acute fracture. Soft tissues: Unremarkable. CT/CT angio chest PE protcl [id number] IMPRESSION: No acute findings.
[2021-03-31 01:30] LABS: Troponin(5th) Baseline 6 ng/L (0-10)
[2021-03-31 01:34] LABS: Alanine Aminotransferase 15 U/L (0-33); Albumin Level 3.5 g/dL (3.5-5.2); Alkaline Phosphatase 129 IU/L (35-105); Anion Gap 16.1 (5-19); Aspartate Amino Transferase 16 U/L (0-32); Blood Urea Nitrogen 8 mg/dL (6-20); Calcium 9.6 mg/dL (8.5-10.5); Carbon Dioxide 27 mmol/L (22-29); Chloride 101 mmol/L (98-107); Globulin 4.4 g/dL (1.3-4.6); Glomerular Filtration Rate 149.1 mL/min (90-130); Glucose 89 mg/dL (65-115); Osmolality Calculated 288 mOsm/kg (285-295); Potassium 4.1 mmol/L (3.5-5.1); Sodium 140 mmol/L (136-145); Total Bilirubin 0.3 mg/dL (0.15-1.2); Total Protein 7.9 g/dL (6.6-8.7)
[2021-03-31] MEDS: iohexol 350 mg/mL 100 mL Btl IV (01:39)
--- NOTE | 2021-03-31 01:48 | ECG_ITS ---
[facility] Test Date: 2021-03-31 Pat Name: Soraida Dong Department: Room: Gender: Female Daytime Caregiver: : 1995 Requested By: Jamee Cortez Order Number: [id number] Reading MD: VARINDER CABEZAS Measurements Intervals [place] Rate: 94 P: 62 ND: 170 QRS: 90 QRSD: 94 T: 56 QT: 356 QTc: 446 Interpretive Statements SINUS RHYTHM POSSIBLE RIGHT ATRIAL ENLARGEMENT [0.25mV P-WAVE] Compared to ECG 03/30/2021 23:35:00 No significant changes Electronically Signed On 03-31-2021 19:52:30 EDUCATION MANAGERS by VARINDER CABEZAS [id number]
[2021-03-31 02:01] VITALS: BP 163/102; PULSE 90; RESP 20; O2SAT 91
== END 2021-03-31 02:02 | disposition home or self-care (01) ==
PROVIDERS: Emergency Provider Emergency Medicine; PCP Family Medicine
DX: R07.9 Chest pain, unspecified (principal); M54.2 Cervicalgia; R06.02 Shortness of breath; R51.9 Headache, unspecified; H53.9 Unspecified visual disturbance; Z79.891 Long term (current) use of opiate analgesic
CPT/HCPCS: 70450; 71045; 71275; 80053; 84484; 85025; 85378; 93005; 96374; 96375; 99284; J1885; J2060; Q9967

== ENCOUNTER 2021-04-04 08:24 | Emergency (ER) | payer MEDICAID, SELFPAY ==
--- NOTE | 2021-04-04 08:26 | ED_ITS ---
HPI - Abdominal Pain General: Chief Complaint: Abdominal Pain Stated Complaint: ABD PAIN Time Seen by Provider: 04/04/21 08:25 History of Present Illness: 26-year-old female who presents to the emergency room with complaints of abdominal pain. She states this began about 3 to 4 days ago. She is a lot of bloating and cramping. Most of the pain seems to be just slightly infraumbilical. She describes it now as having become diffuse throughout the entire abdomen. She has had diarrhea and vomiting but no hematochezia melena hematemesis or coffee-ground emesis she not had any dysuria urgency or frequency. She not noticed anything that relieves or exacerbates the pain she has had a loss of appetite. She is currently regular taking pantoprazole for reflux. Her last menstrual period was 2 weeks ago she reports as having been a little bit light for her normal periods. She was seen earlier this week with chest discomfort and elevated blood pressure. MD elicited complaint: abdominal pain Onset (ago): day(s) (3) Pain Consistency: constant Location: Periumbilical Severity: moderate Quality: cramping, aching and fullness Migration to: other (Diffuse) Exacerbating factors: nothing Relieving factors: nothing Associated Symptoms: Reports anorexia, belching, bloating, change in bowel habits, change in stool character, chills, GI cramping, diarrhea, dyspepsia, fever(s), heartburn, loose stools, nausea, poor appetite and vomiting; Denies coffee ground emesis, constipation, dysuria, excessive flatus, hematochezia, hematuria, hematemesis, fecal incontinence, melena and syncope Related Data: Date of Last Menstrual Period: 03/23/21 Review of Systems Const: Reports: fever(s) and chills ENMT: Denies: throat pain, ear or mastoid pain, nasal discharge or nasal congestion Card: Denies: syncope Resp: Denies: dyspnea, productive cough or non-productive cough GI: Reports: nausea, vomiting, heartburn, diarrhea, bloating, GI cramping, belching, change in bowel habits and change in stool character; Denies: hematemesis, coffee ground emesis, constipation, excessive flatus, fecal incontinence, hematochezia or melena : Denies: dysuria or hematuria Skin/Breast: Denies: rash or pruritus PFSH ED PFSH: Medical History Hypertension Morbid obesity Surgical History History of section X2 Social History Smoking and tobacco status: never smoked Female Reproductive History: Date of last menstrual period: 03/23/21 Physical Exam Const: GENERAL APPEARANCE: cooperative and comfortable ORIENTATION/CONSCIOUSNESS: Yes awake, Yes oriented to person, Yes oriented to place and Yes oriented to time HENMT: COMMON NORMALS: normocephalic, atraumatic and hearing grossly normal bilaterally HEAD & SCALP: normocephalic and atraumatic Neck/C-Spine: COMMON NORMALS: no JVD Resp: COMMON NORMALS: normal respiratory effort, No retractions, No use of accessory muscles and clear to auscultation bilaterally AUSCULTATION: clear to auscultation bilaterally Cardio: COMMON NORMALS: no JVD, regular rate, regular rhythm and No murmurs present (Cardio) RATE: regular rate RHYTHM: regular rhythm GI: COMMON NORMALS: Soft to palpation and No hepatosplenomegaly present AUSCULTATION: Yes normoactive bowel sounds PALPATION: Yes Soft to palpation, Yes Tenderness to palpation present (GI) (Focal to midline infraumbilical, mildly tender throughout), No Guarding due to palpation present (GI) and Yes No hepatosplenomegaly present Extremity: COMMON NORMALS: normal to inspection, capillary refill normal, no clubbing, cyanosis or edema, no calf tenderness and no pedal edema Neuro: SENSORIUM/ORIENTATION: Yes oriented to person, Yes oriented to place and Yes oriented to time Skin: COMMON NORMALS: no rashes or lesions noted GENERAL SKIN EXAM: no rashes or lesions noted Course Vital Signs: Vital signs: Vital Signs Temperature 98.9 F 04/04/21 08:27 Pulse Rate 93 04/04/21 10:55 Respiratory Rate 18 04/04/21 10:55 Blood Pressure 165/80 04/04/21 10:55 Pulse Oximetry 92 04/04/21 10:55 MDM - Abdominal Pain Medical Decision Making Labs and imaging reviewed. CT shows enteritis. Clear liquid diet antiemetics advance diet as tolerated if is worsening change symptoms return to emergency room. Medical Records I reviewed the patient's medical records. Lab Data I reviewed the patient's lab results. : 04/04/21 08:46 04/04/21 08:46 Labs/Radiology: Radiology Impressions Abdomen/Pelvis CT 04/04/21 08:45 IMPRESSION: 1. Diffuse fatty infiltration of the liver. Small amount of perihepatic fluid. 2. A few loops of fluid-filled small bowel with mild thickening in the midabdomen and pelvis suspicious for small bowel enteritis. No evidence of obstruction. 3. Small amount of fluid in the pericolic gutters and pelvis. 4. No hydronephrosis in either kidney. Normal renal parenchymal enhancement. 5. Normal appendix in the RIGHT lower quadrant. Laboratory Results WBC 19.9 10^3/uL (4.0-10.0) H 04/04/21 08:46 RBC 6.03 10^6/uL (4.1-5.3) H 04/04/21 08:46 Hgb 14.9 g/dL (11.5-15.3) 04/04/21 08:46 Hct 50.0 % (37.0-47.0) H 04/04/21 08:46 MCV 82.9 fl (81-99) 04/04/21 08:46 MCH 24.7 pg (28.0-34.0) L 04/04/21 08:46 MCHC 29.8 g/dL (30.0-36.0) L 04/04/21 08:46 RDW 15.9 % (12.1-15.1) H 04/04/21 08:46 Plt Count 285 10^3/cmm (130-400) 04/04/21 08:46 MPV 9.6 fL (7.4-10.4) 04/04/21 08:46 Neut % (Auto) 93.8 % 04/04/21 08:46 Lymph % (Auto) 3.8 % 04/04/21 08:46 [place] % (Auto) 1.7 % 04/04/21 08:46 Eos % (Auto) 0.1 % 04/04/21 08:46 Baso % (Auto) 0.3 % 04/04/21 08:46 Neut # (Auto) 18.72 10^3/uL (1.8-7.7) H 04/04/21 08:46 Lymph # (Auto) 0.8 10^3/uL (0.8-4.8) 04/04/21 08:46 [place] # (Auto) 0.3 10^3/uL (0.2-0.9) 04/04/21 08:46 Eos # (Auto) 0.0 10^3/uL (0.0-0.8) 04/04/21 08:46 Baso # (Auto) 0.1 10^3/uL (0.0-0.1) 04/04/21 08:46 Nucleated RBC % (auto) 0 % 04/04/21 08:46 Nucleated RBCs # 0.0 /100WBC 04/04/21 08:46 Sodium 140 mmol/L (136-145) 04/04/21 08:46 Potassium 3.9 mmol/L (3.5-5.1) 04/04/21 08:46 Chloride 101 mmol/L (98-107) 04/04/21 08:46 Carbon Dioxide 29 mmol/L (22-29) 04/04/21 08:46 Anion Gap 13.9 (5-19) 04/04/21 08:46 BUN 6 mg/dL (6-20) 04/04/21 08:46 Creatinine 0.5 mg/dL (0.5-0.9) 04/04/21 08:46 GFR Calculation 149.1 mL/min (90-130) H 04/04/21 08:46 Glucose 118 mg/dL (65-115) H 04/04/21 08:46 Calculated Osmolality 289 mOsm/kg (285-295) 04/04/21 08:46 Lactic Acid 1.3 mmol/L (0.5-2.2) 04/04/21 08:46 Calcium 8.4 mg/dL (8.5-10.5) L 04/04/21 08:46 Total Bilirubin 0.4 mg/dL (0.15-1.2) 04/04/21 08:46 AST 9 U/L (0-32) 04/04/21 08:46 ALT 8 U/L (0-33) 04/04/21 08:46 Alkaline Phosphatase 114 IU/L (35-105) H 04/04/21 08:46 Total Protein 7.3 g/dL (6.6-8.7) 04/04/21 08:46 Albumin 3.4 g/dL (3.5-5.2) L 04/04/21 08:46 Globulin 3.9 g/dL (1.3-4.6) 04/04/21 08:46 Lipase 15 U/L (13-60) 04/04/21 08:46 HCG, Qual Negative (Negative) 04/04/21 08:46 Urine Color Yellow (Yellow) 04/04/21 10:04 Urine Appearance Sl hazy (CLEAR) 04/04/21 10:04 Urine pH 5 (5-7) 04/04/21 10:04 Ur Specific [place] 1.010 (1.005-1.030) 04/04/21 10:04 Urine Protein 1+ (Negative) H 04/04/21 10:04 Urine Glucose (UA) Norm (Normal) 04/04/21 10:04 Urine Ketones Negative (Negative) 04/04/21 10:04 Urine Blood Neg (Negative) 04/04/21 10:04 Urine Nitrate Negative (Negative) 04/04/21 10:04 Urine Bilirubin 1+ (Negative) H 04/04/21 10:04 Urine Urobilinogen 1 mg/dL (Negative) H 04/04/21 10:04 Ur Leukocyte Esterase Trace (Negative) H 04/04/21 10:04 Urine RBC 0-4 /hpf (0-2) H 04/04/21 10:04 Urine WBC 5-10 /hpf (0-5) H 04/04/21 10:04 Ur Squamous Epith Cells 15-25 /hpf (0-5) H 04/04/21 10:04 Amorphous Sediment Not Reportable 04/04/21 10:04 Urine Bacteria Trace /hpf (NONE) 04/04/21 10:04 Hyaline Casts 0-4 /lpf H 04/04/21 10:04 Coarse Granular Casts 0-4 /lpf H 04/04/21 10:04 Urine Mucus Trace /hpf 04/04/21 10:04 Discharge Plan Discharge Patient Disposition: Home Clinical Impression: Enteritis Condition: Stable Prescriptions: New Zofran 4 mg tablet 4 mg PO Q6H PRN (Reason: nausea and vomiting) Qty: 20 0RF No Action 1 tab PO DAILY 0RF melatonin 1 cap PO BEDTIME 0RF ibuprofen 800 mg Tablet 800 mg PO TID Qty: 60 0RF oxycodone-acetaminophen 5-325 mg Tablet 1 tab PO Q6H PRN (Reason: Moderate To Severe Pain) Qty: 30 0RF Fioricet 50-300-40 mg capsule 1 cap PO Q6H PRN (Reason: pain) Qty: 14 0RF Celebrex 100 mg capsule 100 mg PO BID Qty: 20 0RF Discharge Orders: Discharge ED (Routine); Ordered 04/04/21 Ordered By: Shaq Montero Referrals: Olga Martini DO [Primary Care Provider] - Discharge Diet: Clear Liquid Discharge Activity: Increase activity as tolerated Patient Instructions: Clear Liquid Diet, Enteritis (ED), Opioid Safety Activity Restrictions/Additional Instructions: Clinical diet for 24 to 48 hours and advance as tolerated use antiemetics as needed follow-up as needed Coding Level of Care Code ED Optical Instruments Supervisor for Kaelyn Fwd Exam Comprehensive
[2021-04-04 08:27] VITALS: BP 148/81; PULSE 98; RESP 16; TEMP 37.2; O2SAT 91; BMI 63.6
--- NOTE | 2021-04-04 08:45 | CT_ITS ---
WS: [id number] CT ABDOMEN PELVIS TECHNIQUE: Contrast-enhanced CT of the abdomen and pelvis with coronal and sagittal reformatted image s. CLINICAL INFORMATION: abd pain COMPARISON: 019 DLP: 1804.[address] scans at [facility] use at least one of these dose optimization techniques: automated e xposure control; mA and/or kV adjustment per patient size (includes targeted exams where dose is matc hed to clinical indication); or iterative reconstruction. FINDINGS: Diffuse fatty infiltration the liver. Normal portal vein and splenic vein. Normal GE junction. Normal spleen. Normal pancreas. Lung bases are well aerated. Adrenal glands are normal. Normal renal parenc hymal enhancement. No hydronephrosis. Small amount of free fluid in the pelvis. Normal caliber abdominal aorta. No periaortic or retroperit rivera lymphadenopathy. A few loops of slightly thickened and fluid distended small bowel in the midabdomen and pelvis can be seen with small bowel enteritis. No evidence of obstruction. Small amount of perihepatic ascites. Sm all amount of fluid in the pericolic gutters. Normal appendix in the RIGHT lower quadrant. CT/CT abdomen pelvis w con* [id number] IMPRESSION: 1. Diffuse fatty infiltration of the liver. Small amount of perihepatic fluid. 2. A few loops of fluid-filled small bowel with mild thickening in the midabdo men and pelvis suspicious for small bowel enteritis. No evidence of obstruction . 3. Small amount of fluid in the pericolic gutters and pelvis. 4. No hydronephrosis in either kidney. Normal renal parenchymal enhancement. 5. Normal appendix in the RIGHT lower quadrant.
[2021-04-04 08:53] LABS: Basophils # 0.1 10^3/uL (0.0-0.1); Basophils % 0.3 %; Eosinophils % 0.1 %; Hemoglobin 14.9 g/dL (11.5-15.3); Lymphocytes # 0.8 10^3/uL (0.8-4.8); Lymphocytes % 3.8 %; Mean Corpuscular HGB Conc 29.8 g/dL (30.0-36.0); Mean Corpuscular Hemoglobin 24.7 pg (28.0-34.0); Mean Corpuscular Volume 82.9 fl (81-99); Mean Platelet Volume 9.6 fL (7.4-10.4); Monocytes # 0.3 10^3/uL (0.2-0.9); Monocytes % 1.7 %; Neutrophils # 18.72 10^3/uL (1.8-7.7); Neutrophils % 93.8 %; Nucleated Red Blood Cells % 0 %; Platelet Count 285 10^3/cmm (130-400); Red Blood Count 6.03 10^6/uL (4.1-5.3); Red Cell Distribution Width 15.9 % (12.1-15.1); White Blood Count 19.9 10^3/uL (4.0-10.0)
[2021-04-04 08:54] VITALS: BP 146/100; PULSE 89; RESP 20; O2SAT 92
[2021-04-04] MEDS: sodium chloride 0.9% 1,000 ML 999 ML IV (09:15)
[2021-04-04] MEDS: ondansetron 2 mg/ML SDV 2 mL 4 MG IVP (09:16)
[2021-04-04 09:17] VITALS: RESP 20
[2021-04-04 09:17] LABS: HCG, Serum Qual Negative (Negative)
[2021-04-04] MEDS: morphine 4 mg/mL SDV 1 mL IVP (09:17)
[2021-04-04 09:26] LABS: Lactic Sepsis W/Reflex 1.3 mmol/L (0.5-2.2)
[2021-04-04 09:28] LABS: Alanine Aminotransferase 8 U/L (0-33); Albumin Level 3.4 g/dL (3.5-5.2); Alkaline Phosphatase 114 IU/L (35-105); Anion Gap 13.9 (5-19); Aspartate Amino Transferase 9 U/L (0-32); Blood Urea Nitrogen 6 mg/dL (6-20); Calcium 8.4 mg/dL (8.5-10.5); Carbon Dioxide 29 mmol/L (22-29); Chloride 101 mmol/L (98-107); Globulin 3.9 g/dL (1.3-4.6); Glomerular Filtration Rate 149.1 mL/min (90-130); Glucose 118 mg/dL (65-115); Lipase 15 U/L (13-60); Osmolality Calculated 289 mOsm/kg (285-295); Potassium 3.9 mmol/L (3.5-5.1); Sodium 140 mmol/L (136-145); Total Bilirubin 0.4 mg/dL (0.15-1.2); Total Protein 7.3 g/dL (6.6-8.7)
[2021-04-04] MEDS: iohexol 300 mg/mL 100 mL Btl IV (09:39)
[2021-04-04 10:21] VITALS: BP 165/80; PULSE 93; RESP 18
[2021-04-04 10:30] LABS: Add Urine Microscopic? YES; Bilirubin Urine 1+ (Negative); Blood Urine Neg (Negative); Glucose Urine UA Norm (Normal); Ketones Urine Negative (Negative); Leukocyte Esterase Urine Trace (Negative); Nitrate Urine Negative (Negative); Protein Urine 1+ (Negative); Urine Appearance SL Hazy (CLEAR); Urine Color Yellow (Yellow); pH Urine 5 (5-7)
[2021-04-04 10:32] LABS: Urobilinogen Urine 1 mg/dL (Negative)
[2021-04-04 10:55] VITALS: BP 165/80; PULSE 93; RESP 18; O2SAT 92
[2021-04-04 10:55] LABS: Add Urine Culture? No; Bacteria Urine TRACE /hpf; Coarse Granular Casts Urine 0-4 /lpf; Hyaline Casts Urine 0-4 /lpf; Mucus Urine TRACE /hpf; RBC Urine 0-4 /hpf (0-2); Squamous Epithelial Cell Urine 15-25 /hpf (0-5)
== END 2021-04-04 10:53 | disposition home or self-care (01) ==
PROVIDERS: Emergency Provider Family Medicine; PCP Family Medicine
DX: K52.9 Noninfective gastroenteritis and colitis, unspecified (principal); I10 Essential (primary) hypertension
CPT/HCPCS: 74177; 80053; 81001; 83605; 83690; 84703; 85025; 96361; 96374; 96375; 99284; J2270; J2405; J7030; Q9967

== ENCOUNTER 2021-04-07 10:58 | Outpatient (CLI) | payer MEDICAID, SELFPAY ==
--- NOTE | 2021-04-07 11:10 | XR_ITS ---
WS: [id number] THORACIC SPINE TECHNIQUE: AP and lateral views are performed. HISTORY: NECK PAIN COMPARISON: None available. Normal posterior thoracic alignment. There are a few irregularities along the endplates in the lower thoracic spine. Pedicles are all identified. No fractures. XR/XR thoracic spine 2V [id number] IMPRESSION: Unremarkable thoracic radiographs. No fracture or malalignment.
--- NOTE | 2021-04-07 11:10 | XR_ITS ---
WS: [id number] CERVICAL SPINE 3 VIEWS HISTORY: NECK PAIN COMPARISON: None available. Quality is mildly compromised by body habitus. Posterior alignment is normal. No fractures. Spinal la minar line is normal. No prevertebral soft tissue swelling. Lateral masses of C1 and C2 are aligned. Odontoid is intact. Soft tissues are normal. XR/XR cervical spine 3V* [id number] IMPRESSION: Normal cervical spine.
--- NOTE | 2021-04-07 11:11 | XR_ITS ---
WS: [id number] LUMBAR SPINE: 3 VIEWS TECHNIQUE: AP, lateral and L5-S1 spot. HISTORY: LOW BACK PAIN COMPARISON: None available. Lumbar vertebra are normally aligned. Disc space heights are well-maintained. Small Schmorl's nodes defects along the superior endplates of T12 and L1. SI joints are symmetric bilaterally. No sclerosis or erosions noted on the CT from 04/04/2021. No soft tissue abnormalities. XR/XR lumbar spine 2-3V* [id number] IMPRESSION: Unremarkable lumbar spine radiographs. No fracture or significant disc disease.
== END 2021-04-07 10:59 | disposition home or self-care (01) ==
PROVIDERS: PCP Family Medicine; Referring Provider Family Medicine; Visit Provider Nurse Practitioner Family
DX: M54.2 Cervicalgia (principal); M54.50 Low back pain, unspecified; M54.16 Radiculopathy, lumbar region
CPT/HCPCS: 72040; 72070; 72100

== ENCOUNTER 2021-09-27 12:46 | Inpatient (IN) | payer MEDICAID, SELFPAY ==
[2021-09-27] VITALS (13 sets, daily range): BP systolic 148–160; BP diastolic 101–103; PULSE 89–103; RESP 17–26; TEMP 37.4; O2SAT 84–98; BMI 61.0
--- NOTE | 2021-09-27 12:50 | XRR_ITS ---
PROCEDURE INFORMATION: Exam: XR Chest Exam date and time: 09/27/2021 2:31 PM Age: 26 years old Clinical indication: Cough and dyspnea; Additional info: Dyspnea/cough TECHNIQUE: Imaging protocol: Radiologic exam of the chest. Views: 1 view. COMPARISON: CT angio chest PE protcl [id number] 09/27/2021 2:23 PM FINDINGS: Lungs: See Heart/Mediastinum finding. Pleural spaces: Unremarkable. No pleural effusion. No pneumothorax. Heart/Mediastinum: Cardiac silhouette appears somewhat magnified by technique but is probably mildly enlarged. Probable mild cephalization of vascularity which may be related to mild vascular congestion. Bones/joints: No acute osseous findings. Other findings: Single view was submitted. Diffuse bilateral ill-defined patchy opacities are noted. Please refer to CT exam report same day. XR/XR chest 1V portable [id number] IMPRESSION: 1. Probable mild CHF. 2. Bilateral pulmonary opacities as described. Please refer to chest CT report same day.
--- NOTE | 2021-09-27 13:15 | CTR_ITS ---
PROCEDURE INFORMATION: Exam: CTA Chest With Contrast Exam date and time: 09/27/2021 2:23 PM Age: 26 years old Clinical indication: Shortness of breath; Patient HX: C/O cough, fever, SOB; Additional info: Dyspnea TECHNIQUE: Imaging protocol: Computed tomographic angiography of the chest with contrast. 3D rendering (Not supervised by radiologist): MIP and/or 3D reconstructed images were created by the technologist. Radiation optimization: All CT scans at this facility use at least one of these dose optimization techniques: automated exposure control; mA and/or kV adjustment per patient size (includes targeted exams where dose is matched to clinical indication); or iterative reconstruction. Contrast material: OMNI 350; Contrast volume: 95 ml; Contrast route: INTRAVENOUS (IV); COMPARISON: CT angio chest PE protcl [id number] 03/31/2021 1:32 AM RADIATION DOSE METRICS: Total DLP (mGy-cm): 553.71 FINDINGS: Pulmonary arteries: There is no pulmonary embolism in the central-proximal segmental branches. Assessment of the peripheral subsegmental small branches is limited due to artifacts and suboptimal bolus Aorta: No aortic aneurysm. No aortic dissection. Lungs: Bilateral new multifocal small patchy non round ground-glass opacities in both peripheral and non peripheral distribution. No peribronchial thickening or bronchiectasis. A thin-walled lung cyst is noted in the right perihilar region measuring 3.4 cm.. Pleural spaces: Unremarkable. No pneumothorax. No pleural effusion. Heart: Minimal cardiomegaly with slight vascular redistribution which may represent an element of mild vascular congestion. Lymph nodes: Unremarkable. No enlarged lymph nodes. Liver: Hepatosplenomegaly with hepatic steatosis. Bones/joints: No acute fracture. Soft tissues: Unremarkable. CT/CT angio chest PE protcl [id number] IMPRESSION: 1. No acute PE with limitations described above. 2. Minimal cardiomegaly with possible mild vascular congestion. 3. Bilateral multiple small patchy non round ground-glass opacities as described. Imaging features can be seen with COVID-19 pneumonia, though are nonspecific and can occur with a variety of infectious and noninfectious processes. (Reference: [place]) 4. Hepatosplenomegaly with hepatic steatosis. REFERENCES: [place] Carr, et al., Radiological Society of [place] Expert Consensus Statement on Reporting Chest CT Findings Related to COVID-19. Endorsed by the Society of Thoracic Radiology, the [place] [employer], and RSNA. Published May 24, 2019.
--- NOTE | 2021-09-27 13:15 | ECG_ITS ---
[facility] Test Date: 2021-09-27 Pat Name: Soraida Dong Department: Room: Gender: Female Comprehensive Advisor: : 1995 Requested By: Shaq Laurent Order Number: [id number] [place] MD: Cameron Zuleta M.D. Measurements Intervals Herald Rate: 87 P: 73 OR: 137 QRS: 55 QRSD: 101 T: 35 QT: 384 QTc: 463 Interpretive Statements SINUS RHYTHM Compared to ECG 03/31/2021 01:53:15 No significant changes Electronically Signed On 09-28-2021 10:32:13 CDT by Cameron Zuleta M.D. [id number]
[2021-09-27 13:36] LABS: Basophils # 0.1 10^3/uL (0.0-0.1); Basophils % 0.4 %; Eosinophils # 0.3 10^3/uL (0.0-0.8); Eosinophils % 1.9 %; Hematocrit 37.6 % (37.0-47.0); Lymphocytes # 2.1 10^3/uL (0.8-4.8); Lymphocytes % 15.1 %; Mean Corpuscular HGB Conc 29.3 g/dL (30.0-36.0); Mean Corpuscular Hemoglobin 24.1 pg (28.0-34.0); Mean Corpuscular Volume 82.3 fl (81-99); Mean Platelet Volume 9.3 fL (7.4-10.4); Monocytes # 0.8 10^3/uL (0.2-0.9); Neutrophils # 10.52 10^3/uL (1.8-7.7); Neutrophils % 75.7 %; Nucleated Red Blood Cells # 0.1 /100WBC; Nucleated Red Blood Cells % 0.5 %; Platelet Count 294 10^3/cmm (130-400); Red Blood Count 4.57 10^6/uL (4.1-5.3); Red Cell Distribution Width 18.7 % (12.1-15.1); White Blood Count 13.9 10^3/uL (4.0-10.0)
--- NOTE | 2021-09-27 13:39 | W.ED.SOB ---
HPI - SOB/Dyspnea General: Chief Complaint: Shortness of Breath/Dyspnea Stated Complaint: COUGH; FEVER; SOB Time Seen by Provider: 09/27/21 12:49 Source: patient Mode of arrival: EMS Limitations: no limitations History of Present Illness: HPI Narrative: 26-year-old female who presents emergency room with complaints of shortness of breath. Patient is super morbidly obese and is supposed to be on CPAP for sleep apnea and she has not been using it for quite some time now she made attempts her primary to get it represcribed. She is noting increasing shortness of breath as well as some fever. MD elicited complaint: shortness of breath and cough Pertinent past history: other (Sleep apnea) Onset (ago): month(s) (Worse last 4 days) Timing: intermittent Severity: moderate Exacerbating factors: lying flat, exertion and coughing Relieving factors: oxygen and rest Associated symptoms: Deny abdominal pain, chest congestion, chest pain, cough, diaphoresis, dizziness, extremity pain, fever(s), hemoptysis, lightheadedness, myalgias, nausea, orthopnea, palpitations, paresthesias, polydipsia, polyuria, sense of impending doom, syncope or vomiting Treatment prior to arrival: none Review of Systems Const: Denies: fever(s), chills, fatigue, malaise or diaphoresis ENMT: Denies: throat pain, ear or mastoid pain, nasal discharge or nasal congestion Card: Denies: chest pain, palpitations, lightheadedness, syncope or orthopnea Resp: Denies: hemoptysis or chest congestion GI: Denies: abdominal pain, nausea or vomiting : Denies: flank pain, difficulty voiding, dysuria, urinary frequency or urinary urgency Musc: Denies: extremity pain Skin/Breast: Denies: rash or pruritus Neuro: Denies: dizziness Endo: Denies: polyuria or polydipsia PFSH ED PFSH: Medical History Hypertension Hypoxia Morbid obesity Sleep apnea Surgical History History of section X2 Family History Other CAD (coronary artery disease) Diabetes Social History Smoking and tobacco status: never smoked Female Reproductive History: Date of last menstrual period: 03/23/21 Physical Exam Const: GENERAL APPEARANCE: cooperative and comfortable NUTRITIONAL APPEARANCE: obese morbidly obese ORIENTATION/CONSCIOUSNESS: Yes awake, Yes oriented to person, Yes oriented to place and Yes oriented to time HENMT: COMMON NORMALS: normocephalic, atraumatic and hearing grossly normal bilaterally HEAD & SCALP: normocephalic and atraumatic Resp: COMMON NORMALS: normal respiratory effort, No retractions, No use of accessory muscles and clear to auscultation bilaterally AUSCULTATION: clear to auscultation bilaterally Cardio: COMMON NORMALS: regular rate, regular rhythm and No murmurs present (Cardio) RATE: regular rate RHYTHM: regular rhythm GI: COMMON NORMALS: Soft to palpation and No hepatosplenomegaly present AUSCULTATION: Yes normoactive bowel sounds PALPATION: Yes Soft to palpation, No Tenderness to palpation present (GI), No Guarding due to palpation present (GI) and Yes No hepatosplenomegaly present Extremity: COMMON NORMALS: normal to inspection, capillary refill normal, no clubbing, cyanosis or edema, no calf tenderness and no pedal edema Neuro: SENSORIUM/ORIENTATION: Yes oriented to person, Yes oriented to place and Yes oriented to time Skin: COMMON NORMALS: no rashes or lesions noted GENERAL SKIN EXAM: no rashes or lesions noted Course Vital Signs: Vital signs: Vital Signs Temperature 98.0 F 09/30/21 13:21 Pulse Rate 76 09/30/21 13:21 Respiratory Rate 18 09/30/21 13:21 Blood Pressure 148/93 09/30/21 13:21 Pulse Oximetry 93 09/30/21 13:21 Oxygen Delivery Me thod 09/30/21 12:52 Oxygen Flow Rate 3 09/30/21 10:00 Fraction of Inspir ed Oxygen 45 09/30/21 03:19 MDM - SOB/Dyspnea Medical Decision Making Discussed with hospitalist. Orders written labs imaging and EKG reviewed. Patient admitted for acute respiratory failure. Discussed with patient as well. Medical Records I reviewed the patient's medical records. Lab Data I reviewed the patient's lab results. : 09/29/21 03:42 09/30/21 03:42 Labs/Radiology: Radiology Impressions Chest CTA 09/27/21 13:15 IMPRESSION: 1. No acute PE with limitations described above. 2. Minimal cardiomegaly with possible mild vascular congestion. 3. Bilateral multiple small patchy non round ground-glass opacities as described. Imaging features can be seen with COVID-19 pneumonia, though are nonspecific and can occur with a variety of infectious and noninfectious processes. (Reference: [place]) 4. Hepatosplenomegaly with hepatic steatosis. REFERENCES: [place] Carr, et al., Radiological Society of [place] Expert Consensus Statement on Reporting Chest CT Findings Related to COVID-19. Endorsed by the Society of Thoracic Radiology, the [place] [employer], and RSNA. Published May 24, 2019. Chest X-Ray 09/28/21 04:00 IMPRESSION: 1. Predominately peripheral bilateral interstitial opacities compatible with a bilateral interstitial pneumonia. COVID-19 pneumonia can have this appearance. Laboratory Results WBC 13.9 10^3/uL (4.0-10.0) H 09/27/21 13:18 RBC 4.57 10^6/uL (4.1-5.3) 09/27/21 13:18 Hgb 11.0 g/dL (11.5-15.3) L 09/27/21 13:18 Hct 37.6 % (37.0-47.0) 09/27/21 13:18 MCV 82.3 fl (81-99) 09/27/21 13:18 MCH 24.1 pg (28.0-34.0) L 09/27/21 13:18 MCHC 29.3 g/dL (30.0-36.0) L 09/27/21 13:18 RDW 18.7 % (12.1-15.1) H 09/27/21 13:18 Plt Count 294 10^3/cmm (130-400) 09/27/21 13:18 MPV 9.3 fL (7.4-10.4) 09/27/21 13:18 Neut % (Auto) 75.7 % 09/27/21 13:18 Lymph % (Auto) 15.1 % 09/27/21 13:18 [place] % (Auto) 6.0 % 09/27/21 13:18 Eos % (Auto) 1.9 % 09/27/21 13:18 Baso % (Auto) 0.4 % 09/27/21 13:18 Neut # (Auto) 10.52 10^3/uL (1.8-7.7) H 09/27/21 13:18 Lymph # (Auto) 2.1 10^3/uL (0.8-4.8) 09/27/21 13:18 [place] # (Auto) 0.8 10^3/uL (0.2-0.9) 09/27/21 13:18 Eos # (Auto) 0.3 10^3/uL (0.0-0.8) 09/27/21 13:18 Baso # (Auto) 0.1 10^3/uL (0.0-0.1) 09/27/21 13:18 Nucleated RBC % (auto) 0.5 % 09/27/21 13:18 Nucleated RBCs # 0.1 /100WBC 09/27/21 13:18 D-Dimer 0.94 ug/mIFEU (0-0.59) H 09/27/21 13:18 Specimen Type Arterial 09/27/21 13:45 Sample Site Radial, right 09/27/21 13:45 ABG pH 7.46 (7.35-7.45) H 09/27/21 13:45 ABG pCO2 44.6 mmHg (35-45) 09/27/21 13:45 ABG pO2 67.5 mmHg (80.0-100.0) L 09/27/21 13:45 ABG HCO3 31.4 mmol/L (22-26) H 09/27/21 13:45 ABG O2 Saturation 94.4 09/27/21 13:45 ABG Base Excess 6.7 mmol/L (-2.0-2.0) H 09/27/21 13:45 Ted Test Pos 09/27/21 13:45 A-a O2 Gradient 3.7 mmHg (5-10) L 09/27/21 13:45 Hematocrit 35.2 % (37-47) L 09/27/21 13:45 Hgb O2 Saturation 92.4 % (95-100) L 09/27/21 13:45 Carboxyhemoglobin 2.2 %THgb (0.4-20.1) 09/27/21 13:45 Methemoglobin 0.0 % (0.4-1.5) L 09/27/21 13:45 Total Hemoglobin 11.5 g/dL (12-16) L 09/27/21 13:45 Sodium 139.0 mmol/L (131-143) 09/27/21 13:45 Potassium 3.6 mmol/L (3.5-5.0) 09/27/21 13:45 Glucose 95.0 mg/dL (70-115) 09/27/21 13:45 Ionized Calcium 1.2 mmol/L (1.1-1.4) 09/27/21 13:45 O2 Delivery Device Nc 09/27/21 13:45 O2 Liters/Min 6.0 % 09/27/21 13:45 Link Trainer Mechanic ID Hinja 09/27/21 13:45 Sodium 137 mmol/L (136-145) 09/27/21 13:18 Potassium 3.9 mmol/L (3.5-5.1) 09/27/21 13:18 Chloride 98 mmol/L (98-107) 09/27/21 13:18 Carbon Dioxide 31 mmol/L (22-29) H 09/27/21 13:18 Anion Gap 11.9 (5-19) 09/27/21 13:18 BUN 6 mg/dL (6-20) 09/27/21 13:18 Creatinine 0.4 mg/dL (0.5-0.9) L 09/27/21 13:18 GFR Calculation 192.9 mL/min (90-130) H 09/27/21 13:18 Glucose 87 mg/dL (65-115) 09/27/21 13:18 Calculated Osmolality 281 mOsm/kg (285-295) L 09/27/21 13:18 Calcium 8.6 mg/dL (8.5-10.5) 09/27/21 13:18 Total Bilirubin 0.4 mg/dL (0.15-1.2) 09/27/21 13:18 AST 14 U/L (0-32) 09/27/21 13:18 ALT 12 U/L (0-33) 09/27/21 13:18 Alkaline Phosphatase 118 IU/L (35-105) H 09/27/21 13:18 C-Reactive Protein 109.3 mg/L (0.0-4.9) H 09/27/21 13:18 Total Protein 8.1 g/dL (6.6-8.7) 09/27/21 13:18 Albumin 3.2 g/dL (3.5-5.2) L 09/27/21 13:18 Globulin 4.9 g/dL (1.3-4.6) H 09/27/21 13:18 Procalcitonin 0.08 ng/mL (0-0.5) 09/27/21 13:18 Coronavirus 229E (PCR) Not detected (NOT DETECT) 09/27/21 13:47 SARS-CoV-2 (PCR) Not detected (NOT DETECT) 09/27/21 13:47 Discharge Plan Discharge Patient Disposition: Admitted As Inpatient Admit Provider: Lauren Cortez Clinical Impression: Acute respiratory failure with hypoxia, Congestive heart failure Condition: Stable Coding Level of Care Code 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
[2021-09-27 13:47] LABS: ABG PCO2 44.6 mmHg (35-45); ABG PH Result 7.46 (7.35-7.45); Alveolar-Arterial Oxygen Gradi 3.7 mmHg (5-10); Arterial Blood Gas Hematocrit 35.2 % (37-47); Base Excess ABG 6.7 mmol/L (-2.0-2.0); Blood Gas Allen Test Pos; Blood Gas Sample Site Radial, right; Blood Gas Sample Type Arterial; Carboxyhemoglobin 2.2 %THgb (0.4-20.1); HCO3 ABG 31.4 mmol/L (22-26); HGB O2 Sat 92.4 % (95-100); Ionized Calcium Level - ABG 1.2 mmol/L (1.1-1.4); Oxygen Device NC; Oxygen Saturation ABG 94.4; PO2 ABG 67.5 mmHg (80.0-100.0); Potassium Level - ABG 3.6 mmol/L (3.5-5.0); Total Hemoglobin 11.5 g/dL (12-16)
[2021-09-27 13:59] LABS: Alanine Aminotransferase 12 U/L (0-33); Albumin Level 3.2 g/dL (3.5-5.2); Alkaline Phosphatase 118 IU/L (35-105); Anion Gap 11.9 (5-19); Aspartate Amino Transferase 14 U/L (0-32); Blood Urea Nitrogen 6 mg/dL (6-20); Calcium 8.6 mg/dL (8.5-10.5); Carbon Dioxide 31 mmol/L (22-29); Chloride 98 mmol/L (98-107); Globulin 4.9 g/dL (1.3-4.6); Glomerular Filtration Rate 192.9 mL/min (90-130); Glucose 87 mg/dL (65-115); Osmolality Calculated 281 mOsm/kg (285-295); Potassium 3.9 mmol/L (3.5-5.1); Sodium 137 mmol/L (136-145); Total Bilirubin 0.4 mg/dL (0.15-1.2); Total Protein 8.1 g/dL (6.6-8.7)
[2021-09-27] MEDS: iohexol 350 mg/mL 100 mL Btl IV (14:33)
[2021-09-27 15:51] LABS: Adenovirus Not Detected (NOT DETECT); Chlamydia Pneumoniae Not Detected (NOT DETECT); Coronavirus 229E,HKU1,NL63,OC4 Not Detected (NOT DETECT); Human Metapneumovirus Not Detected (NOT DETECT); Human Rhinovirus/Enterovirus Not Detected (NOT DETECT); Influenza A Not Detected (NOT DETECT); Influenza A H1 Not Detected (NOT DETECT); Influenza A H1-2009 Not Detected (NOT DETECT); Influenza A H3 Not Detected (NOT DETECT); Influenza B Not Detected (NOT DETECT); Mycoplasma Pneumoniae Not Detected (NOT DETECT); Parainfluenza Virus Type 1 Not Detected (NOT DETECT); Parainfluenza Virus Type 2 Not Detected (NOT DETECT); Parainfluenza Virus Type 3 Not Detected (NOT DETECT); Parainfluenza Virus Type 4 Not Detected (NOT DETECT); Respiratory Syncytial Virus A Not Detected (NOT DETECT); Respiratory Syncytial Virus B Not Detected (NOT DETECT); SARS-COV-2 Not Detected (NOT DETECT)
[2021-09-27] MEDS: dexamethasone 10 mg/mL INJ 6 MG IVP (16:23)
[2021-09-27] MEDS: remdesivir 200 MG in sodium chloride 0.9% (100 ml) 60 ML 100 MG IV (16:25)
[2021-09-27 16:29] LABS: C Reactive Protein 109.3 mg/L (0.0-4.9); D Dimer 0.94 ug/mIFEU (0-0.59)
--- NOTE | 2021-09-27 16:32 | PM.HP ---
Providers/Chief Complaint Primary Care Provider: Olga Martini DO Chief Complaint: COUGH; FEVER; SOB History of Present Illness Soraida Dong is a 26 year old female who has a diagnosis of sleep apnea, hypertension, presented today for worsening shortness of breath. Patient is stating that she has been experiencing weight gain, orthopnea and PND. Today she decided to come to the hospital when she was not able to breathe at all she has not been able to use her CPAP machine because it has been taken away by the company. She has been experiencing on and off chest pain she had multiple visits in March of this year for similar complaint and she was treated for anxiety at that time. In the ER COVID test was negative, I have requested echo, BNP, will give her Lasix Review of Systems Const: Reports: chills Eyes: Denies: change in vision ENMT: Denies: throat pain Card: Denies: chest pain Resp: Reports: dyspnea GI: Denies: abdominal pain : Denies: flank pain Musc: Denies: neck pain Skin/Breast: Denies: rash Neuro: Denies: headache(s) Psych: Denies: anxiety Endo: Denies: polyuria [place]/Lymph: Denies: easy bruising All/Imm: Denies: urticaria Medications/Allergies Home Medications Medication Instructions Recorded Confirmed Last Taken Type melatonin 10 mg tablet 10 mg PO DAILY ##0 07/02/19 09/27/21 09/26/21 History aexuwnmcdr-nfszpswyfffzr-pnsvtxjc 1 cap PO Q6H PRN pain #14 caps 01/29/21 09/27/21 Unknown Rx 50 mg-300 mg-40 mg capsule (Fioricet) escitalopram oxalate 10 mg tablet 10 mg PO DAILY 09/27/21 09/27/21 09/26/21 History gabapentin 100 mg capsule 200 mg PO BEDTIME 09/27/21 09/27/21 09/26/21 History lisinopril 20 mg tablet 20 mg PO DAILY 09/27/21 09/27/21 09/26/21 History norgestimate-ethinyl estradiol 1 tab PO DAILY 09/27/21 09/27/21 09/26/21 History 0.18 mg/0.215mg/0.25mg-35 mcg(28)tablet (Tri-Sprintec (28)) pantoprazole 40 mg tablet,delayed 40 mg PO DAILY 09/27/21 09/27/21 09/26/21 History release tizanidine 4 mg tablet 4 mg PO QID PRN Muscle Pain 09/27/21 09/27/21 Unknown History Allergies Allergy/AdvReac Type Severity Reaction Status Date / Time citalopram Allergy palpitation Verified 04/04/21 08:27 s quetiapine [From Seroquel] Allergy palpitation Verified 04/04/21 08:27 s PFSH Acute PFSH: Medical History Hypertension Morbid obesity Surgical History History of section X2 Family History (Updated 09/27/21 @ 17:56 by Lauren Cortez MD) Other CAD (coronary artery disease) Diabetes Social History (Updated 09/27/21 @ 17:56 by Lauren Cortez MD) Smoking and tobacco status: never smoked Substance/Drug Use: current Substance/Drug use type: Marijuana Female Reproductive History: Date of last menstrual period: 03/23/21 Vitals/I&O/Wt Last Vital Signs Temp 99.4 F 09/27/21 12:50 Pulse 96 09/27/21 16:30 Resp 20 H 09/27/21 16:30 BP 148/103 09/27/21 16:30 Pulse Ox 96 09/27/21 16:25 O2 Del Method 09/27/21 16:30 O2 Flow Rate 35 09/27/21 16:25 FiO2 40 09/27/21 16:25 Weight last 48 hrs Weight 176.901 kg Physical Exam Narrative: Morbid obese female Currently on 5 L, No conversational dyspnea No acute respiratory distress S1, S2 Signs of fluid overload Crackles and rhonchi at the base of the lungs Nonfocal neuro exam Awake and alert Very pleasant cooperative Cushingoid appearance Data : 09/28/21 03:39 09/28/21 03:39 A&P Assessment and plan (1) Morbid obesity: Status: Acute (2) Hypoxia: Status: Acute Plan Acute hypoxia Currently on 5 L nasal cannula My suspicion is high for congestive heart failure exacerbation EF is unknown, patient is stating that she had 2 years ago and since then she has been struggling with her shortness of breath. She has not noticed COVID-related symptoms. She suffered from COVID-19 2 years ago. She is vaccinated as well No one else sick at home I will request BNP, echo, will give her Lasix 60 mg If she becomes hypoxic on ambulation would recommend Henderson catheter placement and BiPAP overnight Suspicion is high for untreated sleep apnea causing heart failure COVID antigen and PCR was negative She has received first dose of Decadron and remdesivir. 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
[2021-09-27 16:35] LABS: Procalcitonin 0.08 ng/mL (0-0.5)
--- NOTE | 2021-09-27 17:50 | PC.NURSE ---
Arrived from ED, AO x4, transferred self to bed, little SOB and desat to 80s with ambulation
[2021-09-27] MEDS: enoxaparin 30 mg/0.3 mL Syringe SUBCUT (18:21)
[2021-09-27] MEDS: lisinopril 20 mg Tablet PO (18:21)
[2021-09-27] MEDS: FUROsemide 10 mg/mL SDV 10mL 60 MG IVP (18:21)
[2021-09-27] MEDS: budesonide 0.5 mg/2 mL Neb INHALATION (20:39)
[2021-09-27] MEDS: ipratropium-albuterol 3 mL Neb INHALATION (20:39)
[2021-09-27 21:06] LABS: NT Pro B Type Natriuretic Pept 78 pg/mL (0-125); Procalcitonin 0.11 ng/mL (0-0.5); Thyroid Stimulating Hormone 0.86 uIU/mL (0.27-4.20)
[2021-09-28 03:28] VITALS: PULSE 98; RESP 22; O2SAT 97
--- NOTE | 2021-09-28 04:00 | XRR_ITS ---
PROCEDURE INFORMATION: Exam: XR Chest Exam date and time: 09/28/2021 4:53 AM Age: 26 years old Clinical indication: Shortness of breath and other: Hypoxia icu; Additional info: Chf, hypoxia, patient in icu TECHNIQUE: Imaging protocol: Radiologic exam of the chest. Views: 1 view. COMPARISON: CR (CHEST, ) 09/27/2021 2:31 PM FINDINGS: Lungs: There are bilateral interstitial opacities present in a predominantly perihilar distribution, findings that may represent bilateral interstitial pneumonia. As previously suggested, COVID-19 pneumonia can have this appearance. Pleural spaces: Unremarkable. No pleural effusion. No pneumothorax. Heart/Mediastinum: Unremarkable. No cardiomegaly. Bones/joints: Unremarkable. XR/XR chest 1V portable [id number] IMPRESSION: 1. Predominately peripheral bilateral interstitial opacities compatible with a bilateral interstitial pneumonia. COVID-19 pneumonia can have this appearance.
[2021-09-28 04:08] LABS: Basophils % 0.3 %; Hematocrit 38.3 % (37.0-47.0); Hemoglobin 11.4 g/dL (11.5-15.3); Lymphocytes # 1.1 10^3/uL (0.8-4.8); Lymphocytes % 8.1 %; Mean Corpuscular HGB Conc 29.8 g/dL (30.0-36.0); Mean Corpuscular Hemoglobin 23.8 pg (28.0-34.0); Mean Corpuscular Volume 80.1 fl (81-99); Mean Platelet Volume 9.2 fL (7.4-10.4); Monocytes # 0.3 10^3/uL (0.2-0.9); Monocytes % 2.4 %; Neutrophils % 88.1 %; Nucleated Red Blood Cells % 0.3 %; Platelet Count 341 10^3/cmm (130-400); Red Blood Count 4.78 10^6/uL (4.1-5.3); Red Cell Distribution Width 18.8 % (12.1-15.1); White Blood Count 13.7 10^3/uL (4.0-10.0)
[2021-09-28 05:36] LABS: Blood Urea Nitrogen 7 mg/dL (6-20); C Reactive Protein 125.7 mg/L (0.0-4.9); Calcium 9.1 mg/dL (8.5-10.5); Carbon Dioxide 30 mmol/L (22-29); Chloride 96 mmol/L (98-107); Glomerular Filtration Rate 149.1 mL/min (90-130); Glucose 120 mg/dL (65-115); Magnesium 1.9 mg/dL (1.7-2.3); Osmolality Calculated 287 mOsm/kg (285-295); Phosphorus 3.5 mg/dL (2.5-4.5); Sodium 139 mmol/L (136-145)
[2021-09-28 05:40] VITALS: PULSE 75
[2021-09-28] MEDS: enoxaparin 30 mg/0.3 mL Syringe SUBCUT ×2 (06:04→17:14)
[2021-09-28] MEDS: perflutren protein-a microsphr 0.22 mg/mL SDV 3 mL IV (06:20)
[2021-09-28 06:27] LABS: Amphetamines Screen Urine Negative (Negative); Barbiturates Screen Urine Negative (Negative); Benzodiazepines Screen Urine Negative (Negative); Cocaine Screen Urine Negative (Negative); Opiate Screen Urine Negative (Negative); PCP Screen Urine Negative (Negative); THC Screen Urine Positive (Negative)
[2021-09-28 08:00] VITALS: PULSE 71; RESP 22; O2SAT 95
[2021-09-28] MEDS: budesonide 0.5 mg/2 mL Neb INHALATION ×2 (08:47→20:15)
[2021-09-28] MEDS: ipratropium-albuterol 3 mL Neb INHALATION ×2 (08:47→20:15)
[2021-09-28 08:50] VITALS: PULSE 77; RESP 22; O2SAT 96
[2021-09-28] MEDS: potassium chloride ER 10 mEq Tablet PO (09:01)
[2021-09-28] MEDS: lisinopril 20 mg Tablet PO (09:01)
[2021-09-28] MEDS: sennosides-docusate Tablet 1 TAB PO (09:01)
[2021-09-28] MEDS: pantoprazole DR 40 mg Tablet PO (09:02)
--- NOTE | 2021-09-28 14:04 | PM.PN ---
Subjective Subjective: Patient is endorsing feeling better Echo report is pending BMP is unremarkable Decrease the dose of Lasix I would repeat her COVID PCR today Currently she is on 4 L nasal cannula saturating 94% Vitals/I&O/Wt Last Vital Signs Temp 99.4 F 09/27/21 12:50 Pulse 77 09/28/21 08:50 Resp 22 H 09/28/21 08:00 BP 148/103 09/27/21 16:30 Pulse Ox 96 09/28/21 08:50 O2 Del Method 09/28/21 08:00 O2 Flow Rate 40 09/27/21 20:00 FiO2 45 09/28/21 08:50 09/27/21 09/28/21 09/28/21 22:59 06:59 14:59 Intake Total 320 / 320 600 / 600 Output Total 500 / 500 400 / 900 Balance -180 / -180 -400 / -580 600 / 600 Weight last 48 hrs Weight 176.901 kg Physical Exam Narrative: Patient sitting in her bed Saturating well on 4 L nasal cannula Used BiPAP all night Lungs are clear today as compared to yesterday Abdomen soft, distended, visceral obesity No signs of edema of legs Awake and alert Nonfocal neuro exam Data : 09/28/21 03:39 09/28/21 03:39 A&P Assessment and plan (1) Morbid obesity: Status: Acute (2) Hypoxia: Status: Acute (3) Hypertension: Status: Acute (4) Sleep apnea: Status: Acute Plan Acute hypoxia Will repeat COVID PCR test today BMP is unremarkable Low-dose Lasix for today Waiting on echo report Currently on 4 L nasal cannula CTA chest ruled out PE Inflammatory markers to be repeated tomorrow We will keep her in ICU for today Patient will need another sleep study as previously study was 2 years old She has established diagnosis of sleep apnea Full code Cardiac diet DVT prophylaxis she is getting Lovenox 30 mg every 12 because of her high BMI Hypertensive urgency, currently she is on lisinopril, I have added amlodipine, she is also getting Lasix, I do believe she would need blood pressure cuff size 12 for accurate blood pressure measurement Attestations Medical Necessity Statement*: Continue ICU management Time Spent in Patient Care: 30 Coding Level of Care Code Acute 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
--- NOTE | 2021-09-28 17:37 | USCV_ITS ---
Transthoracic Echo w Contrast Soraida Dnog Age: 26 Gender: F : 1995 Exam Date: 09/28/2021 05:36 Ordering Phys: Lauren Cortez MD Technologist: Alejandra Eubanks Exam Location: [facility] Indication: SOB BP: 144 / 69 HR: 77 Rhythm: Sinus Technical Quality: Adequate MEASUREMENTS (Male / Female) Normal Values 2D ECHO LV Diastolic Diameter PLAX 4.4 cm 4.2 - 5.9 / 3.9 - 5.3 cm LV Systolic Diameter PLAX 2.0 cm IVS Diastolic Thickness 1.4 cm 0.6 - 1.0 / 0.6 - 0.9 cm IVS Systolic Thickness 1.9 cm LVPW Diastolic Thickness 1.4 cm 0.6 - 1.0 / 0.6 - 0.9 cm LVPW Systolic Thickness 2.0 cm LVOT Diameter 2.3 cm LV Ejection Fraction 2D Teich 86.1 % LV Ejection Fraction MOD 2C 28.9 % LV Ejection Fraction 2C AL 22.8 % LA Diameter 2.4 cm Aorta at Sinotubular Diameter 2.6 cm M-MODE MV E Point Septal Separation 0.4 cm DOPPLER AV Peak Velocity 117.7 cm/s LVOT Peak Velocity 62.0 cm/s AV Area Cont Eq vti 2.4 cm squared AV Area Cont Eq pk 2.2 cm squared MV Area PHT 2.9 cm squared Mitral E to A Ratio 1.1 MV E' Velocity 66.8 cm/s Mitral E to MV E' Ratio 16.7 Mitral E to LV E' Lateral Ratio 15.3 Mitral E to LV E' Septal Ratio 18.6 TR Peak Velocity 144.8 cm/s TR Peak Gradient 8.4 mmHg TR Mean Velocity 103.7 cm/s TR Mean Gradient 5.4 mmHg TR Velocity Time Integral 38.3 cm TV Peak E Velocity 63.0 cm/s Right Atrial Pressure 8.0 mmHg Pulmonary Artery Systolic Pressu 16.4 mmHg PV Peak Velocity 138.0 cm/s RV Acceleration Time 0.1 s RV Ejection Time 0.3 s RV AcT/ET 0.3 FINDINGS Left Ventricle Without echo contrast, this examination is uninterpretable. Even with Optison, the imaging is quite poor. The overall ejection fraction is probably normal. Nothing else can be ascertained. No wall motion disturbances can be evaluated. No Doppler examination was obtained due to the poor quality study. Right Ventricle Right ventricle not well visualized. Right Atrium Right atrium not well visualized. Left Atrium Left atrium not well visualized. Mitral Valve Mitral valve not well visualized. Aortic Valve Aortic valve not well visualized. Tricuspid Valve Tricuspid valve not well visualized. Pulmonic Valve Pulmonic valve not well visualized. Pericardium Pericardial area not visualized. Aorta Aorta not well visualized. IVC Inferior vena cava not visualized. CONCLUSIONS Without echo contrast, this examination is uninterpretable. Even with Optison, the imaging is quite poor. The overall ejection fraction is probably normal. Nothing else can be ascertained. No wall motion disturbances can be evaluated. No Doppler examination was obtained due to the poor quality study. Dr. Cameron Zuleta MD (Electronically Signed) Final Date: 28 September 2021 10:14 S
[2021-09-28 20:15] VITALS: PULSE 84; RESP 16; O2SAT 94
[2021-09-28 23:43] VITALS: PULSE 88; RESP 20; O2SAT 97
[2021-09-29 03:46] VITALS: PULSE 75; RESP 19; O2SAT 94
[2021-09-29 03:55] LABS: Basophils # 0.1 10^3/uL (0.0-0.1); Basophils % 0.5 %; Eosinophils # 0.1 10^3/uL (0.0-0.8); Eosinophils % 0.6 %; Hematocrit 35.4 % (37.0-47.0); Hemoglobin 10.5 g/dL (11.5-15.3); Lymphocytes # 2.7 10^3/uL (0.8-4.8); Lymphocytes % 19.7 %; Mean Corpuscular HGB Conc 29.7 g/dL (30.0-36.0); Mean Corpuscular Hemoglobin 23.9 pg (28.0-34.0); Mean Corpuscular Volume 80.6 fl (81-99); Mean Platelet Volume 9.5 fL (7.4-10.4); Monocytes # 0.9 10^3/uL (0.2-0.9); Monocytes % 6.8 %; Neutrophils # 9.84 10^3/uL (1.8-7.7); Neutrophils % 71.7 %; Nucleated Red Blood Cells % 0.2 %; Platelet Count 318 10^3/cmm (130-400); Red Blood Count 4.39 10^6/uL (4.1-5.3); Red Cell Distribution Width 18.6 % (12.1-15.1); White Blood Count 13.7 10^3/uL (4.0-10.0)
[2021-09-29 04:17] LABS: Anion Gap 10.8 (5-19); Blood Urea Nitrogen 12 mg/dL (6-20); C Reactive Protein 59.6 mg/L (0.0-4.9); Calcium 8.8 mg/dL (8.5-10.5); Carbon Dioxide 33 mmol/L (22-29); Chloride 97 mmol/L (98-107); Glomerular Filtration Rate 149.1 mL/min (90-130); Glucose 99 mg/dL (65-115); Osmolality Calculated 284 mOsm/kg (285-295); Potassium 3.8 mmol/L (3.5-5.1); Sodium 137 mmol/L (136-145)
[2021-09-29 06:00] VITALS: PULSE 71
[2021-09-29] MEDS: enoxaparin 30 mg/0.3 mL Syringe SUBCUT ×2 (06:04→17:24)
[2021-09-29] MEDS: lisinopril 20 mg Tablet PO (08:44)
[2021-09-29] MEDS: remdesivir 100 MG in sodium chloride 0.9% (100 ml) 80 ML IV (08:44)
[2021-09-29] MEDS: pantoprazole DR 40 mg Tablet PO (08:44)
[2021-09-29] MEDS: potassium chloride ER 10 mEq Tablet PO (08:44)
[2021-09-29] MEDS: sennosides-docusate Tablet 1 TAB PO (08:44)
[2021-09-29] MEDS: dexamethasone 4 mg Tablet 6 MG PO (08:44)
[2021-09-29 08:48] VITALS: PULSE 82; RESP 22; O2SAT 91
[2021-09-29] MEDS: budesonide 0.5 mg/2 mL Neb INHALATION ×2 (08:48→19:58)
[2021-09-29] MEDS: ipratropium-albuterol 3 mL Neb INHALATION ×2 (08:48→19:58)
[2021-09-29 08:54] VITALS: PULSE 80
--- NOTE | 2021-09-29 12:45 | PM.PN ---
Subjective Subjective: Patient is endorsing feeling better I took her BiPAP off, put on 3 L she is saturating 94 to 98% She is endorsing feeling better Echo was not able to give us any information at this point I have requested another COVID PCR, results are pending U tox positive for marijuana Vitals/I&O/Wt Last Vital Signs Temp 99.4 F 09/27/21 12:50 Pulse 80 09/29/21 08:54 Resp 22 H 09/29/21 08:48 BP 148/103 09/27/21 16:30 Pulse Ox 91 09/29/21 08:48 O2 Del Method 09/29/21 08:48 O2 Flow Rate 3 09/29/21 08:48 FiO2 45 09/29/21 03:46 09/28/21 09/29/21 09/29/21 22:59 06:59 14:59 Intake Total 400 / 1000 300 / 300 Output Total 400 / 400 Balance 0 / 600 300 / 300 Weight last 48 hrs Weight 176.901 kg Physical Exam Narrative: Patient is clinically doing better No audible stridor or wheezing Abdomen soft Clinical signs of fluid overload Is very hard to assess her volume status Awake and alert Nonfocal neuro exam Data : 09/29/21 03:42 09/29/21 03:42 Micro: Microbiology 09/27/21 18:20 MRSA Culture - Final Nose A&P Assessment and plan (1) Sleep apnea: Status: Acute (2) Morbid obesity: Status: Acute (3) Hypertension: Status: Acute (4) Hypoxia: Status: Acute Plan Acute hypoxia Fluid overload versus COVID-19 pneumonia Bilateral groundglass opacities She is showing signs of contraction alkalosis Echo is not helping us to get EF without contrast study I would go ahead discontinue her Lasix because of contraction alkalosis Continue her breathing regimen We will give her remdesivir and Decadron COVID PCR second test is pending She has been afebrile Currently doing well on 3 L nasal cannula BiPAP overnight Drug screen positive for marijuana Full code Cardiac diet DVT prophylaxi Lovenox 60 mg secondary to high BMI I would like to keep her here in ICU for 1 more day, Plan to send her home after home O2 eval She will need another sleep study to get CPAP approved Attestations Medical Necessity Statement*: Discharge tomorrow if clinically better Time Spent in Patient Care: 30 Coding Level of Care Code Acute Sand Caster Apprentice for Chg Fwd Diagnoses Sleep apnea G47.30 Morbid obesity E66.01 Hypertension I10 Hypoxia R09.02
[2021-09-29 17:28] LABS: Quest SARS-CoV-2 RNA NOT DETECTED (NOT DETECTED)
[2021-09-29 19:58] VITALS: PULSE 92; RESP 18; O2SAT 98
[2021-09-30] VITALS (8 sets, daily range): BP systolic 115–148; BP diastolic 84–93; PULSE 65–91; RESP 16–18; TEMP 36.7; O2SAT 87–94
[2021-09-30 05:01] LABS: Blood Urea Nitrogen 9 mg/dL (6-20); Calcium 8.7 mg/dL (8.5-10.5); Carbon Dioxide 31 mmol/L (22-29); Chloride 97 mmol/L (98-107); Glomerular Filtration Rate 192.9 mL/min (90-130); Glucose 104 mg/dL (65-115); Osmolality Calculated 281 mOsm/kg (285-295); Sodium 136 mmol/L (136-145)
[2021-09-30] MEDS: enoxaparin 30 mg/0.3 mL Syringe SUBCUT (06:30)
[2021-09-30] MEDS: potassium chloride ER 10 mEq Tablet PO (08:58)
[2021-09-30] MEDS: pantoprazole DR 40 mg Tablet PO (08:58)
[2021-09-30] MEDS: lisinopril 20 mg Tablet PO (08:58)
[2021-09-30] MEDS: budesonide 0.5 mg/2 mL Neb INHALATION (08:59)
[2021-09-30] MEDS: ipratropium-albuterol 3 mL Neb INHALATION (08:59)
--- NOTE | 2021-09-30 10:09 | PC.CHAP ---
Pastoral Care Encounter/Spiritual Assessment Type of Contact [] Declined cableway operator visit [] Patient/Family/Request visit [] Outpatient visit [] Follow-up visit [] Physician referral [] Code/Alert [x] Routine visit [] Staff referral [] Actively dying [] Patient sleeping [] Family support [] [] Out of room [] Palliative care [] [] Receiving care in room [] Pre-surgical visit [] Trauma [] Long length of stay [x] ICU visit [] Other: Relational/Emotional Strength [] Patient feels connected with others/family/visitors/staff [] Distress [] Loneliness/isolation [] Abandonment Spirituality of Patient [] Person of Marlene [] Attends Pentecostalism of their Marlene [] Believes in Prayer [] Reads Bible or Zoroastrianism materials [] There are Spiritual issues to be addressed Director Of Strategic Partnerships Interventions [x] Prayer [x] Active listening x] Non-anxious presence [x] Spiritual/emotional support [] Crisis/trauma care [] Spiritual counseling [] Bereavement support [] Provided bereavement packet [] Provided Bible/devotional materials [] Provided toy/stuffed animal, coloring book to patient or family member [] Provided Communion [] Anointing/Whitney [] Salvation [x] Completed spiritual assessment [] Other: Impact on Illness or Injury [] Angry [] Fearful [] Anxious [] Often cries [] Exhaustion [] Unable to work [] Unable to attend cheondoism [] Unable to walk/stand [] Unable to read [] Unable to drive [] Unable to eat/drink [] Unable to sleep [] Unable to be with family [] Patient intubated [] Other: Summary feeling better... Time spent with patient
--- NOTE | 2021-09-30 11:58 | P.DS_ITS ---
Discharge Providers Date of Admission: 09/27/21 16:35 Date of Discharge: September 30, 2021 Attending Provider at Admission: Lauren Cortez MD Attending Provider at Discharge: Lauren Cortez MD Primary Care Provider: Olga Martini DO Diagnoses at Discharge Discharge Diagnosis (1) Sleep apnea: Status: Acute (2) Morbid obesity: Status: Acute (3) Hypertension: Status: Acute (4) Hypoxia: Status: Acute Reason for Visit Reason for Visit: COUGH; FEVER; SOB Hospital Course Hospital Course 26-year-old female who was admitted for worsening of shortness of breath. Patient has been diagnosed with sleep apnea in the past, however her CPAP machine was taken away by the company because of her noncompliance 2 years ago, patient suffered from COVID-19 around her 2 years ago, her symptoms started few days before arrival in the ER, she was diagnosed with groundglass opacities on her pulmonary imaging however COVID PCR test which was done twice came back negative. She did receive Decadron and remdesivir while we are waiting for the PCR results. Echo was unremarkable, she was diuresed during her stay in the hospital and kept on BiPAP overnight which improved her respiratory distress. She qualified for 3 L at rest and 4 L on exertion. Our suspicion is still high for COVID-19 related infection. To know her ejection fraction I have given her prescription to get MUGA scan outpatient. On previous visit she was diagnosed with diastoliccongestiveheartfailure. She suffered from contraction alkalosis bicarb at the time of admission 31. PCO2 remained compensated, please note her bicarb at baseline ranges between 28-31. I have given her a referral to get sleep study in order to get CPAP machine at home. I did certified alcohol counselor her the importance of CPAP and treatment of sleep apnea to avoid cor pulmonale and recurrent CHF exacerbation admission. COVID-19 pneumonia ruled out Patient was treated for diastolic congestive heart failure during her hospitalization, she has been prescribed Lasix Outpatient MUGA scan Patient has metabolic syndrome, fatty liver She will need annual liver ultrasound and monitoring Physical Exam Narrative: Patient is clinically doing better No audible stridor or wheezing Abdomen soft Clinical signs of fluid overload Is very hard to assess her volume status Awake and alert Nonfocal neuro exam Discharge Data Studies Completed and Pending Completed Studies During Hospitalization Category Date Time Status CT angio chest PE protcl [id number] Stat Cat Scan 09/27/21 13:15 Completed XR chest 1V portable [id number] Routine Exams 09/28/21 04:00 Completed XR chest 1V portable [id number] Stat Exams 09/27/21 12:50 Completed CV. echo wo/w contrast [id number] Routine Ultrasound 09/28/21 17:37 Completed Radiology Impressions Chest CTA 09/27/21 13:15 IMPRESSION: 1. No acute PE with limitations described above. 2. Minimal cardiomegaly with possible mild vascular congestion. 3. Bilateral multiple small patchy non round ground-glass opacities as described. Imaging features can be seen with COVID-19 pneumonia, though are nonspecific and can occur with a variety of infectious and noninfectious processes. (Reference: Randolph) 4. Hepatosplenomegaly with hepatic steatosis. REFERENCES: [place] Carr, et al., Radiological Society of [place] Expert Consensus Statement on Reporting Chest CT Findings Related to COVID-19. Endorsed by the Society of Thoracic Radiology, the [place] [employer], and RSNA. Published May 24, 2019. Chest X-Ray 09/28/21 04:00 IMPRESSION: 1. Predominately peripheral bilateral interstitial opacities compatible with a bilateral interstitial pneumonia. COVID-19 pneumonia can have this appearance. Laboratory Results WBC 13.7 10^3/uL (4.0-10.0) H 09/29/21 03:42 RBC 4.39 10^6/uL (4.1-5.3) 09/29/21 03:42 Hgb 10.5 g/dL (11.5-15.3) L 09/29/21 03:42 Hct 35.4 % (37.0-47.0) L 09/29/21 03:42 MCV 80.6 fl (81-99) L 09/29/21 03:42 MCH 23.9 pg (28.0-34.0) L 09/29/21 03:42 MCHC 29.7 g/dL (30.0-36.0) L 09/29/21 03:42 RDW 18.6 % (12.1-15.1) H 09/29/21 03:42 Plt Count 318 10^3/cmm (130-400) 09/29/21 03:42 MPV 9.5 fL (7.4-10.4) 09/29/21 03:42 Neut % (Auto) 71.7 % 09/29/21 03:42 Lymph % (Auto) 19.7 % 09/29/21 03:42 Angelina % (Auto) 6.8 % 09/29/21 03:42 Eos % (Auto) 0.6 % 09/29/21 03:42 Baso % (Auto) 0.5 % 09/29/21 03:42 Neut # (Auto) 9.84 10^3/uL (1.8-7.7) H 09/29/21 03:42 Lymph # (Auto) 2.7 10^3/uL (0.8-4.8) 09/29/21 03:42 Angelina # (Auto) 0.9 10^3/uL (0.2-0.9) 09/29/21 03:42 Eos # (Auto) 0.1 10^3/uL (0.0-0.8) 09/29/21 03:42 Baso # (Auto) 0.1 10^3/uL (0.0-0.1) 09/29/21 03:42 Nucleated RBC % (auto) 0.2 % 09/29/21 03:42 Nucleated RBCs # 0.0 /100WBC 09/29/21 03:42 D-Dimer 0.94 ug/mIFEU (0-0.59) H 09/27/21 13:18 Specimen Type Arterial 09/27/21 13:45 Sample Site Radial, right 09/27/21 13:45 ABG pH 7.46 (7.35-7.45) H 09/27/21 13:45 ABG pCO2 44.6 mmHg (35-45) 09/27/21 13:45 ABG pO2 67.5 mmHg (80.0-100.0) L 09/27/21 13:45 ABG HCO3 31.4 mmol/L (22-26) H 09/27/21 13:45 ABG O2 Saturation 94.4 09/27/21 13:45 ABG Base Excess 6.7 mmol/L (-2.0-2.0) H 09/27/21 13:45 Ted Test Pos 09/27/21 13:45 A-a O2 Gradient 3.7 mmHg (5-10) L 09/27/21 13:45 Hematocrit 35.2 % (37-47) L 09/27/21 13:45 Hgb O2 Saturation 92.4 % (95-100) L 09/27/21 13:45 Carboxyhemoglobin 2.2 %THgb (0.4-20.1) 09/27/21 13:45 Methemoglobin 0.0 % (0.4-1.5) L 09/27/21 13:45 Total Hemoglobin 11.5 g/dL (12-16) L 09/27/21 13:45 Sodium 139.0 mmol/L (131-143) 09/27/21 13:45 Potassium 3.6 mmol/L (3.5-5.0) 09/27/21 13:45 Glucose 95.0 mg/dL (70-115) 09/27/21 13:45 Ionized Calcium 1.2 mmol/L (1.1-1.4) 09/27/21 13:45 O2 Delivery Device Nc 09/27/21 13:45 O2 Liters/Min 6.0 % 09/27/21 13:45 Travel Assistant ID Elizabeth 09/27/21 13:45 Sodium 136 mmol/L (136-145) 09/30/21 03:42 Potassium 4.0 mmol/L (3.5-5.1) 09/30/21 03:42 Chloride 97 mmol/L (98-107) L 09/30/21 03:42 Carbon Dioxide 31 mmol/L (22-29) H 09/30/21 03:42 Anion Gap 12.0 (5-19) 09/30/21 03:42 BUN 9 mg/dL (6-20) 09/30/21 03:42 Creatinine 0.4 mg/dL (0.5-0.9) L 09/30/21 03:42 GFR Calculation 192.9 mL/min (90-130) H 09/30/21 03:42 Glucose 104 mg/dL (65-115) 09/30/21 03:42 Calculated Osmolality 281 mOsm/kg (285-295) L 09/30/21 03:42 Calcium 8.7 mg/dL (8.5-10.5) 09/30/21 03:42 Phosphorus 3.5 mg/dL (2.5-4.5) 09/28/21 03:39 Magnesium 1.9 mg/dL (1.7-2.3) 09/28/21 03:39 Total Bilirubin 0.4 mg/dL (0.15-1.2) 09/27/21 13:18 AST 14 U/L (0-32) 09/27/21 13:18 ALT 12 U/L (0-33) 09/27/21 13:18 Alkaline Phosphatase 118 IU/L (35-105) H 09/27/21 13:18 C-Reactive Protein 59.6 mg/L (0.0-4.9) H 09/29/21 03:42 NT-Pro-B Natriuret Pep 78 pg/mL (0-125) 09/27/21 20:28 Total Protein 8.1 g/dL (6.6-8.7) 09/27/21 13:18 Albumin 3.2 g/dL (3.5-5.2) L 09/27/21 13:18 Globulin 4.9 g/dL (1.3-4.6) H 09/27/21 13:18 Procalcitonin 0.11 ng/mL (0-0.5) 09/27/21 20:28 TSH 0.86 uIU/mL (0.27-4.20) 09/27/21 20:28 Urine Opiates Screen Negative ng/mL (Negative) 09/28/21 05:30 Ur Barbiturates Screen Negative ng/mL (Negative) 09/28/21 05:30 Ur Phencyclidine Scrn Negative ng/mL (Negative) 09/28/21 05:30 Ur Amphetamines Screen Negative ng/mL (Negative) 09/28/21 05:30 U Benzodiazepines Scrn Negative ng/mL (Negative) 09/28/21 05:30 Urine Cocaine Screen Negative ng/mL (Negative) 09/28/21 05:30 U Marijuana (THC) Screen Positive ng/mL (Negative) H 09/28/21 05:30 Coronavirus 229E (PCR) Cancelled 09/28/21 12:30 SARS-CoV-2 (PCR) Cancelled 09/28/21 12:30 SARS-CoV-2 RNA (RT-PCR) Not detected (NOT DETECTED) 09/28/21 12:30 Vitals Last Vital Signs Temp 98.0 F 09/30/21 10:00 Pulse 91 09/30/21 10:00 Resp 16 09/30/21 10:00 BP 115/84 09/30/21 10:00 Pulse Ox 94 09/30/21 10:00 O2 Del Method 09/30/21 10:00 O2 Flow Rate 3 09/30/21 10:00 FiO2 45 09/30/21 03:19 Discharge Plan Discharge Patient Disposition: Home Condition: Stable Prescriptions: New Lasix 20 mg tablet 10 mg PO DAILY PRN (Reason: edema) Qty: 10 0RF albuterol sulfate 90 mcg/actuation HFA aerosol inhaler 2 inh inhalation Q8H PRN (Reason: shortness of breath or wheezing) Qty: 8.5 2RF Continued melatonin 10 mg Tablet 10 mg PO DAILY Qty: 0 xeyjizwdev-jcxrkukpyncqb-nyqe [Fioricet] 50-300-40 mg capsule 1 cap PO Q6H PRN (Reason: pain) Qty: 14 0RF tizanidine 4 mg tablet 4 mg PO QID PRN (Reason: Muscle Pain) lisinopril 20 mg tablet 20 mg PO DAILY pantoprazole 40 mg tablet,delayed release (DR/EC) 40 mg PO DAILY Tri-Sprintec (28) 0.18/0.215/0.25 mg-35 mcg (28) tablet 1 tab PO DAILY gabapentin 100 mg capsule 200 mg PO BEDTIME escitalopram oxalate 10 mg tablet 10 mg PO DAILY Discharge Orders: Discharge Order (Routine); Ordered 09/30/21 Ordered By: Lauren Cortez Other Ambulatory Orders: [place] [id number] (Routine) Timeframe: 3 Days Facility: [facility] - Location: Radiology Ordered By: Lauren Cortez Sleep Study/Titration (Routine) Timeframe: 2 Days Facility: [facility] - Location: [facility] Ordered By: Lauren Cortez DME: Oxygen (Order) Location: None Selected Ordered By: Lauren Cortez Referrals: Yon Durbin M.D [Physician] - 11/04/21 1:15 pm Olga Martini DO [Primary Care Provider] - 10/06/21 11:20 am Discharge Diet: Cardiac Discharge Activity: Increase activity as tolerated Patient Instructions: Furosemide (By mouth) (Lasix), Albuterol (By breathing) (ProAir, AccuNeb, Proventil, Proventil..., Heart Healthy Diet, Heart Failure (DC), Viral Pneumonia (DC), Opioid Safety Discharge Attestations Time Spent in Discharge Care*: less than 30 min Quality Metrics Clinical Quality Measures [ No reported AMI, CVA or VTE this stay] Coding Level of Care Code Acute Chg FW DC note Diagnoses Sleep apnea G47.30 Morbid obesity E66.01 Hypertension I10 Hypoxia R09.02
== END 2021-09-30 13:56 | disposition home or self-care (01) | DRG 291 ==
LOC: ER 13:40 → ICU 16:48
PROVIDERS: Admitting Provider Internal Medicine; Emergency Provider Family Medicine; PCP Family Medicine; Visit Provider Internal Medicine
DX: I11.0 Hypertensive heart disease with heart failure (principal); I50.31 Acute diastolic (congestive) heart failure; E87.3 Alkalosis; Z68.44 Body mass index [BMI] 60.0-69.9, adult; I50.30 Unspecified diastolic (congestive) heart failure; G47.30 Sleep apnea, unspecified; E66.01 Morbid (severe) obesity due to excess calories; F12.90 Cannabis use, unspecified, uncomplicated; K76.0 Fatty (change of) liver, not elsewhere classified
CPT/HCPCS: 36415; 36600; 71045; 71275; 80048; 80051; 80053; 80306; 82330; 82805; 83735; 83880; 84100; 84145; 84443; 85025; 85378; 86140; 87635; 87641; 93005; 94640; 94660; 96365; 96372; 96375; 99285; C8929; J1100; J1650; J1940; J7626; J8540; Q9956; Q9967

== ENCOUNTER 2021-11-01 20:09 | Emergency (ER) | payer MEDICAID, SELFPAY ==
[2021-11-01 20:18] VITALS: BP 160/99; PULSE 103; RESP 18; TEMP 36.3; O2SAT 91
[2021-11-01] MEDS: clindamycin 150 mg Capsule 300 MG PO (21:39)
[2021-11-01] MEDS: HYDROcodone-acetaminophen 5-325 mg Tablet 1 TAB PO (21:39)
--- NOTE | 2021-11-01 21:46 | W.ED.DENTAL ---
HPI - Dental/Oral General: Chief complaint: Dental/Oral Stated complaint: mouth pain Time Seen by Provider: 11/01/21 20:57 History of Present Illness: 26-year-old female patient presents to the emergency department complaining of right lower dental pain. Onset 2 days ago. Pt states she woke up in worse pain and swelling today. Pt denies any difficulty swallowing, or throat pain. pt denies any fever. Associated symptoms: Denies ear or mastoid pain, fever(s), odynophagia or tongue swelling Review of Systems Const: Denies: fever(s), chills, body aches, change in appetite, change in weight, fatigue, malaise or diaphoresis Eyes: Denies: change in vision, blurry vision, blind spots, photophobia, eye discomfort, eye discharge, eye redness, floaters or seeing flashes ENMT: Denies: throat pain, uvular edema, enlarged tonsils, odynophagia, hoarseness, mouth pain, swelling of lips/tongue, oral sores, bleeding gums, dry mouth, ear or mastoid pain, ear discharge, change in hearing, tinnitus, disequilibrium, nasal discharge, nasal congestion, post nasal drip or sinus pain Card: Denies: chest pain, palpitations, irregular heart rhythm, edema, swelling of feet/ankles, lightheadedness, syncope, pre-syncope, dyspnea on exertion, orthopnea, leg pain with exertion or acrocyanosis Resp: Denies: dyspnea, productive cough, non-productive cough, wheezing, stridor, pain on inspiration, change in phlegm color, hemoptysis or chest congestion GI: Denies: abdominal pain, nausea, vomiting, hematemesis, dysphagia, diarrhea, constipation, GI cramping, change in bowel habits or rectal pain : Denies: flank pain, difficulty voiding, dysuria, urinary frequency, urinary urgency, urinary hesitancy or hematuria Musc: Denies: neck pain, back pain, extremity pain, extremity swelling, joint pain, joint swelling, joint redness, joint warmth or deformity Skin/Breast: Denies: rash, pruritus, erythema, sores, new lesions, changes in skin color or dry skin Neuro: Denies: headache(s), numbness in extremities, weakness in extremities, sensory changes, lack of coordination, difficulty walking, frequent falls, dizziness, vertigo, confusion, behavioral changes, Slurred speech present, difficulty communicating thoughts or seizure-like activity Psych: Denies: anxiety, depression, suicidal ideation or homicidal ideation Endo: Denies: polyuria, polydipsia, tired all the time, cold intolerance, excessive sweating, flushing, hot flashes or heat intolerance [place]/Lymph: Denies: easy bruising, easy bleeding, petechiae, purpura, enlarged lymph nodes or tender lymph nodes All/Imm: Denies: urticaria, throat swelling, tongue swelling, facial swelling, acute wheezing or itchy eyes PFSH ED PFSH: Medical History Hypertension Hypoxia Morbid obesity Sleep apnea Surgical History History of section X2 Family History Other CAD (coronary artery disease) Diabetes Social History Smoking and tobacco status: never smoked Female Reproductive History: Date of last menstrual period: 03/23/21 Physical Exam Const: COMMON NORMALS: no acute distress, average body habitus, patient oriented x3, no limitations, healthy appearing, alert and well nourished HENMT: COMMON NORMALS: normocephalic, atraumatic, hearing grossly normal bilaterally, external ears normal, EAC's normal, TM's normal bilaterally, Normal external nose present, Normal nasal mucous membranes and turbinates present, moist oral mucous membranes and oropharynx normal; dentition not normal and gingiva not normal HEAD & SCALP: normocephalic and atraumatic NOSE: Normal external nose present and Normal nasal mucous membranes and turbinates present EXTERNAL EAR: Yes external ears normal EXTERNAL AUDITORY CANAL: EAC's normal TYMPANIC MEMBRANE: TM's normal bilaterally THROAT: no uvular edema Neck/C-Spine: COMMON NORMALS: full ROM, no lymphadenopathy, supple, no meningeal signs, no JVD, Thyroid normal and No carotid bruits THYROID: Thyroid normal Cardio: COMMON NORMALS: no JVD Neuro: COMMON NORMALS: patient oriented x3 SENSORIUM/ORIENTATION: Yes alert MENINGEAL SIGNS: Yes no meningeal signs Course Vital Signs: Vital signs: Vital Signs Temperature 97.3 F L 11/01/21 20:18 Pulse Rate 103 H 11/01/21 20:18 Respiratory Rate 18 11/01/21 20:18 Blood Pressure 160/99 11/01/21 20:18 Pulse Oximetry 91 11/01/21 20:18 Oxygen Delivery Me thod 11/01/21 20:18 Oxygen Flow Rate 5 11/01/21 20:18 MDM - Dental/Oral Medical Decision Making Patient is well appearing non toxic and in no acute distress. 26-year-old female patient presents to the emergency department complaining of right lower dental pain. Onset 2 days ago. Pt states she woke up in worse pain and swelling today. Pt denies any difficulty swallowing, or throat pain. pt denies any fever. There is no evidence of abscess there is dental tenderness and dental carries noted. Will start on antibiotics and have follow up with dentist Discharge Plan Discharge Condition: Stable Prescriptions: No Action melatonin 10 mg Tablet 10 mg PO DAILY Qty: 0 tzonlmrybq-cwytaijonbyft-imnj [Fioricet] 50-300-40 mg capsule 1 cap PO Q6H PRN (Reason: pain) Qty: 14 0RF tizanidine 4 mg tablet 4 mg PO QID PRN (Reason: Muscle Pain) lisinopril 20 mg tablet 20 mg PO DAILY pantoprazole 40 mg tablet,delayed release (DR/EC) 40 mg PO DAILY Tri-Sprintec (28) 0.18/0.215/0.25 mg-35 mcg (28) tablet 1 tab PO DAILY gabapentin 100 mg capsule 200 mg PO BEDTIME escitalopram oxalate 10 mg tablet 10 mg PO DAILY Lasix 20 mg tablet 10 mg PO DAILY PRN (Reason: edema) Qty: 10 0RF albuterol sulfate 90 mcg/actuation HFA aerosol inhaler 2 inh inhalation Q8H PRN (Reason: shortness of breath or wheezing) Qty: 8.5 2RF Referrals: Olga Martini DO [Primary Care Provider] - Coding Level of Care Code ED Wide Area Network Administrator for Kaelyn Masters
[2021-11-01] MEDS: HYDROcodone-acetaminophen 5-325 mg Tablet 2 TAB PO (22:37)
--- NOTE | 2021-11-01 22:38 | PC.NURSE ---
Patient given hyrdocodone 5 mg x's two tabs per orders for home, patient and medication scanned
[2021-11-01 22:41] VITALS: BP 147/97; PULSE 86; RESP 18; TEMP 36.3; O2SAT 92
== END 2021-11-01 22:43 | disposition home or self-care (01) ==
PROVIDERS: Emergency Provider Registered Nurse; PCP Family Medicine
DX: I10 Essential (primary) hypertension (principal)
CPT/HCPCS: 99283

== ENCOUNTER 2022-01-22 06:47 | Emergency (ER) | payer MEDICAID, SELFPAY ==
[2022-01-22 07:01] VITALS: BP 120/77; PULSE 63; RESP 17; TEMP 36.5; O2SAT 94
--- NOTE | 2022-01-22 07:20 | ED_ITS ---
HPI - Female Genitourinary General: Chief complaint: Urogenital-Female Stated complaint: Thinks she may have a uti Time Seen by Provider: 01/22/22 07:06 History of Present Illness: 27-year-old female presents to the emergency department motion urinary frequency with dysuria this been ongoing progressively worse last couple days she does report she is prone to getting urinary tract infections. Patient reports generalized bilateral flank pain. The patient is reporting no fevers or chills nausea vomiting or other associated symptoms Associated symptoms: Reports abdominal pain; Deny headache(s) Date of Last Menstrual Period: 03/23/21 Review of Systems General: Reports: 10 or more systems reviewed and unremarkable except in HPI and below Const: Denies: fever(s), chills, fatigue or malaise Eyes: Denies: change in vision or blurry vision Card: Denies: chest pain or palpitations Resp: Denies: dyspnea or productive cough GI: Reports: abdominal pain : Reports: flank pain, dysuria, urinary frequency and urinary urgency Musc: Denies: extremity pain or extremity swelling Skin/Breast: Denies: rash or pruritus Neuro: Denies: headache(s) Psych: Denies: anxiety or depression [place]/Lymph: Denies: easy bleeding All/Imm: Denies: urticaria, throat swelling or facial swelling PFSH ED PFSH: Medical History Hypertension Hypoxia Morbid obesity Sleep apnea Surgical History History of section X2 Family History Other CAD (coronary artery disease) Diabetes Social History Smoking and tobacco status: never smoked Female Reproductive History: Date of last menstrual period: 03/23/21 Physical Exam Const: COMMON NORMALS: no acute distress, patient oriented x3 and healthy appearing HENMT: COMMON NORMALS: normocephalic and atraumatic HEAD & SCALP: normocephalic and atraumatic Eye: COMMON NORMALS: Equal, round and reactive pupils present and EOMs intact bilaterally PUPIL: Yes Equal, round and reactive pupils present Neck/C-Spine: COMMON NORMALS: full ROM, supple and no JVD Lymph: LYMPHATIC: no lymphadenopathy noted Chest: COMMONS NORMALS: normal inspection of the chest and normal palpation of entire chest wall Resp: COMMON NORMALS: normal respiratory effort, No retractions and clear to auscultation bilaterally EFFORT & INSPECTION: Yes able to speak in complete sentences and Yes symmetric chest movement AUSCULTATION: clear to auscultation bilaterally Cardio: COMMON NORMALS: no JVD, regular rate and regular rhythm RATE: regular rate RHYTHM: regular rhythm GI: OTHER: Generalized abdominal discomfort noted to the suprapubic region as well as to the bilateral flanks negative Betito's punch appreciated otherwise soft nontender no generalized distention due to patient's body habitus : COMMON NORMALS: Yes no CVA tenderness BLADDER/KIDNEY EXAM: Yes no CVA tenderness Back/Pelvis: COMMON NORMALS: no CVA tenderness Extremity: COMMON NORMALS: normal to inspection and full ROM Neuro: COMMON NORMALS: patient oriented x3, CN's II-XII intact bilaterally, moves all extremities and no focal motor deficits Psych: COMMON NORMALS: mental status grossly normal, Normal thought process present, cooperative and normal affect THOUGHT PROCESS: Normal thought process present Skin: COMMON NORMALS: no rashes or lesions noted GENERAL SKIN EXAM: no rashes or lesions noted Course Vital Signs: Vital signs: Vital Signs Temperature 97.7 F 01/22/22 07:01 Pulse Rate 63 01/22/22 07:01 Respiratory Rate 17 01/22/22 07:01 Blood Pressure 120/77 01/22/22 07:01 Pulse Oximetry 94 01/22/22 07:01 Oxygen Delivery Me thod 01/22/22 07:01 MDM - Female Medical Decision Making Due to the patient's symptoms and condition urinalysis will be obtained due to patient's current symptoms with providing her a dose of Pyridium while emergency department will continue to follow, patient was found have a urinary tract infection she was given a dose of Levaquin prior to subsequent discharge due to the holiday having no pharmacies open patient be started on a prescription of Pyridium and ciprofloxacin advised to further follow-up with primary care in 1 to 3 days which patient was advised to return the interim if any of her symptoms persist or worse. Lab Data Laboratory Results Urine Color Kayla (Yellow) 01/22/22 07:10 Urine Appearance Clear (CLEAR) 01/22/22 07:10 Urine pH 5 (5-7) 01/22/22 07:10 Ur Specific [place] 1.025 (1.005-1.030) 01/22/22 07:10 Urine Protein Trace (Negative) 01/22/22 07:10 Urine Glucose (UA) Norm (Normal) 01/22/22 07:10 Urine Ketones 1+ (Negative) H 01/22/22 07:10 Urine Blood Neg (Negative) 01/22/22 07:10 Urine Nitrate Negative (Negative) 01/22/22 07:10 Urine Bilirubin 1+ (Negative) H 01/22/22 07:10 Urine Urobilinogen 1 mg/dL (Negative) H 01/22/22 07:10 Ur Leukocyte Esterase 1+ (Negative) H 01/22/22 07:10 Urine RBC 0-4 /hpf (0-2) H 01/22/22 07:10 Urine WBC 25-40 /hpf (0-5) H 01/22/22 07:10 Ur Squamous Epith Cells 5-10 /hpf (0-5) H 01/22/22 07:10 Amorphous Sediment Not Reportable 01/22/22 07:10 Urine Bacteria 1+ /hpf (NONE) H 01/22/22 07:10 Discharge Plan Discharge Patient Disposition: Home Clinical Impression: UTI (urinary tract infection), Dysuria Condition: Stable Prescriptions: New Cipro 500 mg tablet 500 mg PO Q12H Qty: 14 0RF Pyridium 200 mg tablet 200 mg PO Q8H PRN (Reason: pain) Qty: 9 0RF No Action propranolol 20 mg tablet 10 mg PO BID 90 Days Qty: 90 0RF melatonin 10 mg Tablet 10 mg PO DAILY Qty: 0 [id number] [Fioricet] 50-300-40 mg capsule 1 cap PO Q6H PRN (Reason: pain) Qty: 14 0RF tizanidine 4 mg tablet 4 mg PO QID PRN (Reason: Muscle Pain) lisinopril 20 mg tablet 20 mg PO DAILY pantoprazole 40 mg tablet,delayed release (DR/EC) 40 mg PO DAILY Tri-Sprintec (28) 0.18/0.215/0.25 mg-35 mcg (28) tablet 1 tab PO DAILY gabapentin 100 mg capsule 200 mg PO BEDTIME escitalopram oxalate 10 mg tablet 10 mg PO DAILY Lasix 20 mg tablet 10 mg PO DAILY PRN (Reason: edema) Qty: 10 0RF albuterol sulfate 90 mcg/actuation HFA aerosol inhaler 2 inh inhalation Q8H PRN (Reason: shortness of breath or wheezing) Qty: 8.5 2RF Discharge Orders: Discharge ED (Routine); Ordered 01/22/22 Ordered By: Pelon Nicolas Referrals: Olga Martini DO [Primary Care Provider] - 1-3 days Discharge Diet: Advance as tolerated Discharge Activity: Increase activity as tolerated Patient Instructions: Dysuria (ED), Urinary Tract Infection - Women Activity Restrictions/Additional Instructions: Please follow-up with your primary care doctor in 1-3 days, take medications as prescribed and return the interim if any of her symptoms persist or worse Coding Level of Care Code ED Hogshead Mat Inspector for Kaelyn Fwd Exam Comprehensive
[2022-01-22 07:38] LABS: Add Urine Microscopic? YES; Bilirubin Urine 1+ (Negative); Blood Urine Neg (Negative); Glucose Urine UA Norm (Normal); Ketones Urine 1+ (Negative); Leukocyte Esterase Urine 1+ (Negative); Nitrate Urine Negative (Negative); Protein Urine Trace (Negative); Specific Gravity, Urine 1.025 (1.005-1.030); Urine Appearance Clear (CLEAR); Urine Color Amber (Yellow); Urobilinogen Urine 1 mg/dL (Negative); pH Urine 5 (5-7)
[2022-01-22 07:47] LABS: Add Urine Culture? Yes; Bacteria Urine 1+ /hpf; Other Sediment, Urine T; RBC Urine 0-4 /hpf (0-2); WBC Urine 25-40 /hpf (0-5)
[2022-01-22] MEDS: phenazopyridine 100 mg Tablet 200 MG PO ×2 (07:55)
[2022-01-22] MEDS: levoFLOXacin 750 mg Tablet PO (09:30)
== END 2022-01-22 09:45 | disposition home or self-care (01) ==
PROVIDERS: Emergency Provider Emergency Medicine; PCP Family Medicine
DX: N39.0 Urinary tract infection, site not specified (principal)
CPT/HCPCS: 81001; 87086; 87106; 99283

== ENCOUNTER 2022-05-16 20:28 | Emergency (ER) | payer MEDICAID, SELFPAY ==
[2022-05-16 20:52] VITALS: BP 154/88; PULSE 72; RESP 18; TEMP 36.4; O2SAT 94; BMI 56.3
--- NOTE | 2022-05-16 21:18 | W.ED.SKABFB ---
HPI - Skin/Abscess/Foreign Bdy General: Chief complaint: Skin/Abscess/Foreign Body Stated complaint: rash from stomach up, itchy, painful Time Seen by Provider: 05/16/22 20:59 History of Present Illness: 27-year-old female comes in today for complaints of rash to the right forearm and left abdomen. Patient denies any change in cosmetics or detergents. Patient does have a history of psoriasis. Patient does take medications for migraine headaches, CHF, major depression, OCP, and GERD. Patient reported noticing the redness and rash starting in the last 2 to 3 days. Associated symptoms: Deny fever(s) Review of Systems Const: Denies: fever(s) Card: Denies: chest pain Resp: Denies: dyspnea GI: Denies: abdominal pain Musc: Denies: neck pain Skin/Breast: Reports: rash PFSH ED PFSH: Medical History Hypertension Hypoxia Morbid obesity Sleep apnea Surgical History History of section X2 Family History Other CAD (coronary artery disease) Diabetes Social History Smoking and tobacco status: never smoked Alcohol intake: never Physical Exam Const: COMMON NORMALS: alert HENMT: COMMON NORMALS: normocephalic HEAD & SCALP: normocephalic MOUTH: Normal oral and palatal mucosa present Neck/C-Spine: COMMON NORMALS: full ROM Resp: COMMON NORMALS: normal respiratory effort and clear to auscultation bilaterally AUSCULTATION: clear to auscultation bilaterally Cardio: COMMON NORMALS: regular rate and regular rhythm RATE: regular rate RHYTHM: regular rhythm Extremity: COMMON NORMALS: full ROM Neuro: SENSORIUM/ORIENTATION: Yes alert Skin: RASHES: rashes noted (Maculopapular rash noted to the left forearm and left abdomen.) Course Vital Signs: Vital signs: Vital Signs Temperature 97.6 F 05/16/22 20:52 Pulse Rate 72 05/16/22 20:52 Respiratory Rate 18 05/16/22 20:52 Blood Pressure 154/88 05/16/22 20:52 Pulse Oximetry 94 05/16/22 20:52 Oxygen Delivery Me thod 05/16/22 20:52 MDM - Skin/Abscess/Foreign Bdy Medicial Decision Making 27-year-old female comes in today with complaints of rash developing over the last 3 days to the left forearm and the left abdomen. 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 Patient denies any fever or chills. Patient appears nontoxic. Vital signs are normal except for some elevation of blood pressure. Differential diagnosis includes but not limited to psoriasis, contact dermatitis, eczema, folliculitis. I suspect patient has a flare of her psoriasis. We will go ahead and start patient on some triamcinolone cream 0.1% to use twice a day to the rash to see if we can get improvement with flare and erythema. I will cover the patient for secondary bacterial infection due to the tenderness of the rash to her left forearm. Patient reported understanding of care plan need for follow-up or return to the ER. Discharge Plan Discharge Patient Disposition: Home Clinical Impression: Psoriasis Condition: Stable Prescriptions: New cephalexin 500 mg capsule 500 mg PO TID 7 Days Qty: 21 0RF triamcinolone acetonide 0.1 % cream 1 applic topical BID Qty: 80 0RF No Action buspirone 15 mg tablet 15 mg PO TID aripiprazole [Abilify] 10 mg tablet 10 mg PO DAILY propranolol 20 mg tablet See Rx Instructions .ROUTE .COMPLEX Qty: 90 0RF Dose Instruction: TAKE 1/2 TABLET BY MOUTH TWICE DAILY Rx Instructions: TAKE 1/2 TABLET BY MOUTH TWICE DAILY melatonin 10 mg Tablet 10 mg PO DAILY Qty: 0 tizanidine 4 mg tablet 4 mg PO QID PRN (Reason: Muscle Pain) lisinopril 20 mg tablet 20 mg PO DAILY pantoprazole 40 mg tablet,delayed release (DR/EC) 40 mg PO DAILY Tri-Sprintec (28) 0.18/0.215/0.25 mg-35 mcg (28) tablet 1 tab PO DAILY gabapentin 100 mg capsule 200 mg PO BEDTIME escitalopram oxalate 10 mg tablet 10 mg PO DAILY albuterol sulfate 90 mcg/actuation HFA aerosol inhaler 2 inh inhalation Q8H PRN (Reason: shortness of breath or wheezing) Qty: 8.5 2RF Discharge Orders: Discharge ED (Routine); Ordered 05/16/22 Ordered By: Domingo Chavez Referrals: Olga Martini DO [Primary Care Provider] - Discharge Diet: Usual diet Discharge Activity: Increase activity as tolerated Patient Instructions: Psoriasis (ED) Activity Restrictions/Additional Instructions: Take cephalexin 500 mg 3 times a day to cover for secondary bacterial infection. Use triamcinolone cream twice a day to the rash until redness and inflammation resolves. Follow-up with primary care in 3 to 5 days for recheck. Return to ER for worsening symptoms such as uncontrolled pain, fever greater than 100.4, increased swelling to the extremity. Coding Level of Care Code ED Duty Engineer for Kaelyn Masters
[2022-05-16] MEDS: cephALEXin 500 mg Capsule PO (21:37)
[2022-05-16] MEDS: triamcinolone 0.1% cream 15 gm 1 APPLIC TOPICAL (21:37)
== END 2022-05-16 21:39 | disposition home or self-care (01) ==
PROVIDERS: Emergency Provider Nurse Practitioner Family; PCP Family Medicine
DX: L40.9 Psoriasis, unspecified (principal); I11.0 Hypertensive heart disease with heart failure; I50.9 Heart failure, unspecified; E66.01 Morbid (severe) obesity due to excess calories; Z68.43 Body mass index [BMI] 50.0-59.9, adult
CPT/HCPCS: 99283

== ENCOUNTER 2022-06-20 03:27 | Emergency (ER) | payer MEDICAID, SELFPAY ==
[2022-06-20 03:58] VITALS: BMI 47.0
--- NOTE | 2022-06-20 04:11 | W.ED.DENTAL ---
HPI - Dental/Oral General: Chief complaint: Dental/Oral Stated complaint: Tooth Ache Time Seen by Provider: 06/20/22 03:50 Source: patient Mode of arrival: ambulatory Limitations: no limitations History of Present Illness: Patient presents to the emergency department tonight accompanied by significant other for evaluation treatment of left upper dental pain. Patient reports trying to sleep tonight but, dental pain was keeping her awake. Patient has had issues with dental infection and pain every few months for a while now. She states she has never had a dentist evaluate these teeth. She also noted issues with sinus infection and allergies the last couple of weeks. Review of Systems General: Reports: 10 or more systems reviewed and unremarkable except in HPI and below PFSH ED PFSH: Medical History Hypertension Hypoxia Morbid obesity Sleep apnea Surgical History History of section X2 Family History Other CAD (coronary artery disease) Diabetes Social History Smoking and tobacco status: never smoked Alcohol intake: never Substance/Drug Use: never Physical Exam Const: COMMON NORMALS: no acute distress, patient oriented x3 and alert HENMT: OTHER: Patient has several broken teeth in her left upper molars. The area of tenderness has a tooth broken off at the gumline and discolored roots remain. Gums are erythematous and mildly swollen without any signs of active draining. No significant signs of facial swelling or erythema of the face. Eye: COMMON NORMALS: Equal, round and reactive pupils present, EOMs intact bilaterally and conjunctivae normal CONJUNCTIVA: Yes conjunctivae normal PUPIL: Yes Equal, round and reactive pupils present Neck/C-Spine: COMMON NORMALS: no JVD Lymph: LYMPHATIC: no lymphadenopathy noted Resp: COMMON NORMALS: normal respiratory effort, No retractions and No use of accessory muscles Cardio: COMMON NORMALS: no JVD and regular rate RATE: regular rate : COMMON NORMALS: Yes no CVA tenderness BLADDER/KIDNEY EXAM: Yes no CVA tenderness Back/Pelvis: COMMON NORMALS: no CVA tenderness, thoracic and lumbar spine normal to inspection and thoraco-lumbar ROM normal Extremity: COMMON NORMALS: normal to inspection, full ROM and no pedal edema Neuro: COMMON NORMALS: patient oriented x3 SENSORIUM/ORIENTATION: Yes alert Skin: COMMON NORMALS: no rashes or lesions noted and turgor normal GENERAL SKIN EXAM: no rashes or lesions noted and turgor normal MDM - Dental/Oral Medical Decision Making Patient presents to the emergency department today for evaluation treatment of left-sided dental pain. Patient does have multiple damaged teeth in this area and there is redness and mild swelling of the gumline however, patient is also been dealing with sinus issues and complains of left sinus pain at this time. We will treat the patient with Augmentin to give us both dental and sinusitis coverage. First dose was provided here in the emergency department. Viscous lidocaine treatment provided as well as continued Augmentin, viscous lidocaine, and ibuprofen 800 mg for patient comfort. She is encouraged to follow-up with a dentist as treatment of these teeth will most likely be the only definitive treatment for her recurrent pain. Differential Diagnosis Likely gingival abscess, dental caries, toothache, dental abscess and fracture of tooth Discharge Plan Discharge Patient Disposition: Home Clinical Impression: Dental infection Condition: Stable Prescriptions: New amoxicillin-pot clavulanate 875-125 mg tablet 1 tab PO BID Qty: 20 0RF Lidocaine Viscous 2 % solution 1 applic mucous membrane Q8H PRN (Reason: pain) Qty: 100 0RF ibuprofen 800 mg tablet 800 mg PO Q8H Qty: 21 0RF No Action buspirone 15 mg tablet 15 mg PO TID aripiprazole [Abilify] 10 mg tablet 10 mg PO DAILY propranolol 20 mg tablet See Rx Instructions .ROUTE .COMPLEX Qty: 90 0RF Dose Instruction: TAKE 1/2 TABLET BY MOUTH TWICE DAILY Rx Instructions: TAKE 1/2 TABLET BY MOUTH TWICE DAILY melatonin 10 mg Tablet 10 mg PO DAILY Qty: 0 tizanidine 4 mg tablet 4 mg PO QID PRN (Reason: Muscle Pain) lisinopril 20 mg tablet 20 mg PO DAILY pantoprazole 40 mg tablet,delayed release (DR/EC) 40 mg PO DAILY Tri-Sprintec (28) 0.18/0.215/0.25 mg-35 mcg (28) tablet 1 tab PO DAILY gabapentin 100 mg capsule 200 mg PO BEDTIME escitalopram oxalate 10 mg tablet 10 mg PO DAILY albuterol sulfate 90 mcg/actuation HFA aerosol inhaler 2 inh inhalation Q8H PRN (Reason: shortness of breath or wheezing) Qty: 8.5 2RF triamcinolone acetonide 0.1 % cream 1 applic topical BID Qty: 80 0RF Discharge Orders: Discharge ED (Routine); Ordered 06/20/22 Ordered By: Ynes So Referrals: Olga Martini DO [Primary Care Provider] - Discharge Diet: Advance as tolerated Discharge Activity: Resume usual activity Patient Instructions: Dental Abscess (ED), Toothache (ED) Activity Restrictions/Additional Instructions: There is redness and some swelling in the area of your dental discomfort. Also, with the indication of pain radiating up into your cheek, it is possible that you have some of the roots of your teeth that extend up into your sinus cavity. Dental infections can cause sinus pain and sinus infections can cause dental pain for this reason. I am starting you on antibiotics which give us coverage for both sinusitis and dental infections. I am giving you some medication you can apply topically for pain as well as 800 mg ibuprofens. I do recommend reaching out to a dentist to have these teeth evaluated as it does appear that a more permanent solution is needed to treat recurrence of dental infection and dental pain. Coding Level of Care Code ED Data Center Project Manager for Kaelyn Masters
[2022-06-20] MEDS: ketorolac 60 mg/2 mL INJ IM (04:20)
[2022-06-20] MEDS: amoxicillin-clav 875-125 mg Tablet 1 TAB PO (04:20)
== END 2022-06-20 04:50 | disposition home or self-care (01) ==
PROVIDERS: Emergency Provider Physician Assistant; PCP Family Medicine
DX: K04.7 Periapical abscess without sinus (principal); I10 Essential (primary) hypertension
CPT/HCPCS: 96372; 99284; J1885

== ENCOUNTER 2022-06-22 15:23 | Emergency (ER) | payer MEDICAID, SELFPAY ==
[2022-06-22 15:35] VITALS: BP 186/112; PULSE 68; RESP 19; TEMP 36.6; O2SAT 95; BMI 56.3
--- NOTE | 2022-06-22 15:58 | XRR_ITS ---
PROCEDURE INFORMATION: Exam: XR Chest Exam date and time: 06/22/2022 4:14 PM Age: 27 years old Clinical indication: Shortness of breath; Additional info: SOB TECHNIQUE: Imaging protocol: Radiologic exam of the chest. Views: 1 view. COMPARISON: CR XR chest 1V portable [id number] 09/28/2021 4:53 AM FINDINGS: Lungs: Unremarkable. No consolidation. Pleural spaces: Unremarkable. No pleural effusion. No pneumothorax. Heart/Mediastinum: Unremarkable. No cardiomegaly. Bones/joints: Unremarkable. XR/XR chest 1V portable [id number] IMPRESSION: No acute findings.
== END 2022-06-22 17:02 | disposition left against medical advice (07) ==
LOC: ER 15:26
PROVIDERS: Emergency Provider Family Medicine; PCP Family Medicine
DX: Z53.21 Procedure and treatment not carried out due to patient leaving prior to being seen by health care provider (principal)
CPT/HCPCS: 71045